=== PATIENT | female | born 1940 | race Caucasian/White ===

== ENCOUNTER 2019-07-06 12:47 | Emergency (ER) | payer MEDICARE, OTHER ==
[~2019-07-06] VITALS: Ht 157.5 cm; Wt 104.5 kg
[~2019-07-06 12:47] MED LIST: ACET65TA; ACTO45TA; AMBI10TA; ASPI81TA83; ATEN25TA; COZA100T; CYMBALTA; DARV100T; LASI40TA; LESC80TA; LEVO125T6; LORAPOW30; STARLIX; TRAM50TA2 OR; VITA50TA12 OR
--- NOTE | 2019-07-06 13:54 | REP ---
CT brain: 07/06/2019. Indication: Head trauma. Comparison: 11/18/2009. Technique: Unenhanced axial CT images of the brain were obtained from skull base to vertex. Findings: There is no acute intracranial hemorrhage, acute cortical infarction, mass effect, hydrocephalus or acute calvarial fracture. Diffuse volume loss is present. Patchy areas of cerebral white matter hypoattenuation are noted most consistent with sequelae of chronic small vessel disease. Impression: No acute intracranial process. Mild volume loss and sequelae of chronic microangiopathic ischemic disease. Electronically Signed by Dave Shabazz DO 07/06/2019 01:46 P
--- NOTE | 2019-07-06 13:58 | REP ---
CT cervical spine: 07/06/2019. Indication: Cervical spine trauma. Comparison: None. Technique: Unenhanced axial CT images of the cervical spine were performed with sagittal and coronal reconstructions provided. Findings: There is no acute fracture, subluxation or dislocation. The spinal canal and neural foramen appear patent without evidence of spinal canal hemorrhage or additional acute spinal canal post traumatic sequelae. The paraspinal soft tissues are unremarkable. Multilevel degenerative sequelae are present most pronounced at C6/C7. Impression: No acute post traumatic osseous injuries of the cervical spine. Electronically Signed by Dave Shabazz DO 07/06/2019 01:49 P
[2019-07-06] MEDS ORDERED: ONDANSETRON 4MG/2ML VIAL (J2405) IV ONE (14:00)
[2019-07-06] MEDS ORDERED: MORPHINE 4 MG/ML 1ML VIAL/SYRINGE (J2270) IV ONE (14:00)
[2019-07-06] MEDS ORDERED: PERCOCET 5MG/325MG TAB PO ONE (15:00)
[2019-07-06] MEDS ORDERED: LIDOCAINE W/EPINEPHRINE 1% 20ML VIAL SC ONE (15:00)
[2019-07-06 15:02] LABS: BASO % 0.6 % (0.0-1.0); EOS # 0.4 10^3/uL (0.0-0.5); EOS % 5.4 % (0.0-3.0); HEMATOCRIT 41.2 % (36.0-47.0); HEMOGLOBIN 13.3 g/dl (12.0-15.5); LYMPH # 1.8 10^3/uL (1.5-5.0); LYMPH % 26.8 % (24.0-44.0); MEAN CORPUSCULAR HEMOGLOBIN 31.4 pg (27.0-33.0); MEAN CORPUSCULAR HGB CONC 32.3 g/dl (32.0-36.5); MEAN CORPUSCULAR VOLUME 97.2 fl (80.0-96.0); MONO # 0.5 10^3/uL (0.0-0.8); MONO % 7.2 % (0.0-5.0); NEUTROPHILS # 3.9 10^3/uL (1.5-8.5); NEUTROPHILS % 59.4 % (36.0-66.0); PLATELET COUNT, AUTOMATED 109 10^3/uL (150-450); RED BLOOD COUNT 4.24 10^6/uL (4.00-5.40); WHITE BLOOD COUNT 6.6 10^3/uL (4.0-10.0)
[2019-07-06 15:12] LABS: INR 1.1; PROTHROMBIN TIME 13.9 SECONDS (11.8-14.0)
[2019-07-06 15:13] LABS: PARTIAL THROMBOPLASTIN TIME 35.9 SECONDS (25.0-38.4)
--- NOTE | 2019-07-06 15:21 | REP ---
HISTORY: Pain after trauma. COMPARISON: None. The lack of intravenous contrast decreases the sensitivity of the exam. Standard trauma protocol requires the use of intravenous contrast. There is no evidence of mediastinal or hilar adenopathy. There are no pleural or pericardial effusions. The imaged osseous structures are within normal limits for the patient's age. Evaluation of the lung watts shows no abnormal nodules, masses or opacities. IMPRESSION: Limited exam showing no evidence of acute disease. Electronically Signed by Michael Gomez DO 07/06/2019 04:57 P
--- NOTE | 2019-07-06 15:22 | REP ---
REASON: Pain after trauma. The lack of intravenous contrast significantly decreases the sensitivity of the exam particularly when the patient has been involved in trauma. Trauma protocol requires intravenous contrast administration to better evaluate the liver and spleen for small lacerations. For discussion of the lung bases seen the CT examination of the chest report made the same day. Grossly, the liver and spleen are within normal limits. No abnormal perisplenic or perihepatic fluid is identified. The pancreas, adrenal glands, and kidneys are within normal limits for the patient's age. The abdominal aorta and paraaortic regions are within normal limits for the patient's age. There is no evidence of free fluid or free air in the abdomen. The bowel loops and their mesenteries are unremarkable. Note is made of perisplenic varices. CT PELVIS: There is no free fluid or free air. There is no mass or adenopathy. The bowel loops and their mesenteries are within normal limits. Bone window technique throughout the exam shows the osseous structures to be within normal limits for the patient's age. IMPRESSION: Exam limitations and findings as described above. There is no evidence of an acute abnormality. Electronically Signed by Michael Gomez DO 07/06/2019 04:57 P
[2019-07-06 15:28] LABS: ALBUMIN 2.8 GM/DL (3.2-5.2); BILIRUBIN,DIRECT 0.3 MG/DL (0.0-0.2); BILIRUBIN,TOTAL 0.9 MG/DL (0.2-1.0); CALCIUM LEVEL 9.2 MG/DL (8.8-10.2); CREATININE FOR GFR 1.19 MG/DL (0.55-1.30); GLOMERULAR FILTRATION RATE 46.7 (>39); POTASSIUM SERUM 4.9 MEQ/L (3.5-5.1); TOTAL PROTEIN 7.3 GM/DL (6.4-8.2)
[2019-07-06 16:15] VITALS: BP 170/74
[2019-07-06] MEDS ORDERED: COLA100C5 PO (16:23)
[2019-07-06] MEDS ORDERED: PERC5TAB12 PO (16:23)
== END 2019-07-06 17:12 | disposition home or self-care (01) ==
LOC: M ED 12:47 → EDBD 12:47 → M ED 17:12
DX: S01.81XA Laceration without foreign body of other part of head, initial encounter (principal); S20.212A Contusion of left front wall of thorax, initial encounter; V48.4XXA Person boarding or alighting a car injured in noncollision transport accident, initial encounter; Y92.89 Other specified places as the place of occurrence of the external cause; I10 Essential (primary) hypertension; E11.9 Type 2 diabetes mellitus without complications; Z79.899 Other long term (current) drug therapy; Z79.890 Hormone replacement therapy
CPT/HCPCS: 12011; 70450; 71250; 72125; 74176; 80048; 80076; 83690; 85025; 85610; 85730; 86850; 86900; 86901; 93041; 94760; 96374; 96375; 99285; J2270; J2405

== ENCOUNTER 2020-12-18 12:41 | Emergency (ER) | payer MEDICARE, OTHER ==
[~2020-12-18] VITALS: Ht 157.5 cm; Wt 105.6 kg
[~2020-12-18 12:41] MED LIST changes: +COLA100C5 PO; +PERC5TAB12 PO
[2020-12-18 15:35] LABS: VENOUS BASE EXCESS -3.2 (-2.0-2.0); VENOUS HCO3 22.5 MEQ/L (23.0-27.0); VENOUS O2 SATURATION 59.5 % (60.0-80.0); VENOUS PARTIAL PRESSURE CO2 42.9 mmHg (38.0-50.0); VENOUS PARTIAL PRESSURE O2 33.9 mmHg (30.0-50.0); VENOUS PH 7.338 UNITS (7.330-7.430); VENOUS TOTAL CO2 23.8 MEQ/L (24.0-28.0)
[2020-12-18 15:38] LABS: BASO % 0.7 % (0.0-1.0); EOS # 0.5 10^3/uL (0.0-0.5); EOS % 8.1 % (0.0-3.0); HEMATOCRIT 38.4 % (36.0-47.0); HEMOGLOBIN 12.3 g/dl (12.0-15.5); LYMPH % 35.3 % (24.0-44.0); MEAN CORPUSCULAR HEMOGLOBIN 31.3 pg (27.0-33.0); MEAN CORPUSCULAR VOLUME 97.7 fl (80.0-96.0); MONO # 0.6 10^3/uL (0.0-0.8); MONO % 11.2 % (2.0-8.0); NEUTROPHILS # 2.5 10^3/uL (1.5-8.5); NEUTROPHILS % 44.3 % (36.0-66.0); RED BLOOD COUNT 3.93 10^6/uL (4.00-5.40); WHITE BLOOD COUNT 5.6 10^3/uL (4.0-10.0)
[2020-12-18] MEDS ORDERED: ROSU20TA5 (15:57)
[2020-12-18] MEDS ORDERED: TRES1INJ (15:57)
[2020-12-18] MEDS ORDERED: NOVOINJ3 (15:57)
[2020-12-18] MEDS ORDERED: HUMI40KI2 (15:57)
[2020-12-18] MEDS ORDERED: SITA50TAB (15:57)
[2020-12-18] MEDS ORDERED: VITA100054 PO (15:57)
[2020-12-18 16:02] LABS: CALCIUM LEVEL 10.1 MG/DL (8.8-10.2); CREATININE FOR GFR 1.66 MG/DL (0.55-1.30); GLOMERULAR FILTRATION RATE 31.6 (>32)
--- NOTE | 2020-12-18 16:15 | REP ---
INDICATION: TIA. COMPARISON: CT head 07/06/2019. TECHNIQUE: Axial CT images with multiplanar reformations. FINDINGS: No acute bleed or acute large vessel territorial infarct. Ventricles, cisterns and sulci are within normal limits. No mass effect or midline shift. No abnormal fluid collections. Paranasal sinuses and mastoid air cells are clear. IMPRESSION: No acute findings. No significant changes from previous. <Electronically signed by Edison Lundy > 12/18/20 [id number]
[2020-12-18 16:21] LABS: PLATELET COUNT, AUTOMATED 85 10^3/uL (150-450)
[2020-12-18 16:41] LABS: HEMOGLOBIN A1c 8.3 %
[2020-12-18] MEDS ORDERED: FREETES12 MC (18:06)
[2020-12-18] MEDS ORDERED: GLUCOSE LANCETS (18:06)
[2020-12-18] MEDS ORDERED: [UNRECOGNIZED DRUG - SUPPLY] XX (18:06)
[2020-12-18 18:44] VITALS: BP 121/91
== END 2020-12-18 18:45 | disposition home or self-care (01) ==
LOC: M ED 12:41
DX: E11.9 Type 2 diabetes mellitus without complications (principal); F41.9 Anxiety disorder, unspecified; I10 Essential (primary) hypertension; E78.5 Hyperlipidemia, unspecified; E66.9 Obesity, unspecified; Z79.899 Other long term (current) drug therapy; Z79.4 Long term (current) use of insulin

== ENCOUNTER 2021-04-15 13:16 | Inpatient (IN) | payer MEDICARE, OTHER ==
[2021-04-15] VITALS (8 sets, daily range): BP systolic 95–161; BP diastolic 59–98
[~2021-04-15] VITALS: Ht 160 cm; Wt 116.1 kg
[~2021-04-15 13:16] MED LIST changes: +FREETES12 MC; +GLUCOSE LANCETS; +HUMI40KI2 PO; +NOVOINJ3 SQ; +ROSU20TA5; +SITA50TAB PO; +TRES1INJ SQ; +VITA100054 PO; +[UNRECOGNIZED DRUG - SUPPLY] XX
[2021-04-15] MEDS ORDERED: NS 3,150 ML in IV 1 EA IV ONE (13:50)
[2021-04-15 14:18] LABS: HEMATOCRIT 38.4 % (36.0-47.0); HEMOGLOBIN 12.3 g/dl (12.0-15.5); MEAN CORPUSCULAR HEMOGLOBIN 30.3 pg (27.0-33.0); MEAN CORPUSCULAR VOLUME 94.6 fl (80.0-96.0); RED BLOOD COUNT 4.06 10^6/uL (4.00-5.40); WHITE BLOOD COUNT 16.3 10^3/uL (4.0-10.0)
[2021-04-15 14:19] LABS: VENOUS BASE EXCESS -5.5 (-2.0-2.0); VENOUS HCO3 20.1 MEQ/L (23.0-27.0); VENOUS O2 SATURATION 88.1 % (60.0-80.0); VENOUS PARTIAL PRESSURE CO2 39.8 mmHg (38.0-50.0); VENOUS PARTIAL PRESSURE O2 59.9 mmHg (30.0-50.0); VENOUS PH 7.321 UNITS (7.330-7.430); VENOUS STANDARD HCO3 19.7 MEQ/L; VENOUS TOTAL CO2 21.3 MEQ/L (24.0-28.0)
[2021-04-15 14:23] LABS: PLATELET COUNT, AUTOMATED 72 10^3/uL (150-450)
--- NOTE | 2021-04-15 14:27 | REP ---
INDICATION: DKA. COMPARISON: 02/08/2011. TECHNIQUE: Portable AP view of the chest with the patient semi upright. FINDINGS: The patient is rotated and the cardiac silhouette obscures almost the entire left hemithorax. There is interstitial coarsening throughout the visualized right lung that appears slightly increased from the comparison study. There are no focal infiltrates. No pleural effusion. The madelin and mediastinum are obscured by patient positioning. IMPRESSION: Interstitial coarsening, somewhat increased from the comparison study. <Electronically signed by Chase Salazar > 04/15/21 [id number]
--- NOTE | 2021-04-15 14:28 | REP ---
INDICATION: fall; left shoulder pain COMPARISON: None. TECHNIQUE: Three views left shoulder. FINDINGS: There is no evidence of acute fracture, dislocation, or intrinsic bone disease.Humeral head is high riding with significant decreased subacromial space compatible with a rotator cuff tear. There are mild degenerative changes at the acromioclavicular joint. IMPRESSION: No fracture or dislocation. High riding humeral head compatible with rotator cuff tear. <Electronically signed by Chase Garcia > 04/15/21 [id number]
[2021-04-15] MEDS ORDERED: DEXTROSE 50% 50 ML SYRINGE IV STA ×2 (15:00→19:08)
--- NOTE | 2021-04-15 15:11 | REP ---
INDICATION: DKA. COMPARISON: None. TECHNIQUE: CT brain performed in the axial plane. Coronal reconstruction images are performed. FINDINGS: There is mild atrophy. There is no midline shift or mass effect. Garcia-white differentiation is well maintained. There is no acute intracranial hemorrhage or extra-axial fluid collection. Bone window examination is unremarkable. The visualized mastoid air cells and paranasal sinuses are clear. There are vascular calcifications in the carotid siphons bilaterally. IMPRESSION: Mild stable chronic findings. No acute intracranial abnormality. <Electronically signed by Chase Garcia > 04/15/21 [id number]
--- NOTE | 2021-04-15 15:16 | REP ---
INDICATION: DKA. COMPARISON: 07/06/2019. TECHNIQUE: CT cervical spine performed in the axial plane, with sagittal and coronal reconstruction images performed. FINDINGS: There is no acute compression fracture or malalignment. There is no prevertebral soft tissue swelling. There is mild to moderate diffuse spurring. There is mild disc space narrowing at C4-5 and C5-6 with a more moderate degree of disc space narrowing at C6-7. There is diffuse sclerosis and spurring at the posterior facet joints. There is curvature toward the left. There is normal cervical lordosis. There is no abnormal density in the spinal canal. IMPRESSION: No evidence of acute fracture or dislocation.Degenerative changes as above. <Electronically signed by Chase Garcia > 04/15/21 [id number]
[2021-04-15] MEDS ORDERED: cefTRIAXone SOD 2 GM in D5W MINI-BAG PLUS 50 ML IV ONE (15:45)
[2021-04-15 15:48] LABS: ATYPICAL LYMPH 1 % (0-5); EOSINOPHILS 1 % (0-3); LYMPHOCYTES 4 % (16-44); MONOCYTES 4 % (0-5); NEUTROPHILS 89 % (28-66)
[2021-04-15 15:49] LABS: PLATELET ESTIMATE DECREASED (NORMAL); TOXIC VACUOLATION 1+
[2021-04-15 16:07] LABS: ACETONE/KETONE 2.85 MG/DL (<2.81); ALBUMIN 2.2 GM/DL (3.2-5.2); BILIRUBIN,DIRECT 1.7 MG/DL (0.0-0.2); BILIRUBIN,TOTAL 2.9 MG/DL (0.2-1.0); CK-MB VALUE MASS 70.6 NG/ML (<3.6); CREATININE FOR GFR 1.71 MG/DL (0.55-1.30); GLOMERULAR FILTRATION RATE 30.6 (>32); MAGNESIUM LEVEL 2.8 MG/DL (1.8-2.4); MB/CK RELATIVE INDEX 3.12 (< OR =4); POTASSIUM SERUM 4.1 MEQ/L (3.5-5.1); TROPONIN I 3.8 NG/ML (< 0.10)
[2021-04-15 16:11] LABS: RSV AMPLIFICATION NEGATIVE (NEGATIVE)
[2021-04-15 16:32] LABS: HEMOGLOBIN A1c 7.4 %
[2021-04-15 17:50] LABS: CK-MB VALUE MASS 64.5 NG/ML (<3.6); MB/CK RELATIVE INDEX 3.43 (< OR =4); TROPONIN I 3.62 NG/ML (< 0.10)
[2021-04-15] MEDS ORDERED: NS 1,000 ML IV SCH (18:10)
--- NOTE | 2021-04-15 20:15 | HPEPDOC ---
[facility] Medical History & Physical Date of Admission Apr 15, 2021 Date of Service: Apr 15, 2021 History and Physical CHIEF COMPLAINT: Found down on ground by neighbors HISTORY OF PRESENT ILLNESS: History was obtained from emergency department staff patient does remember how she ended up in the hospital. I'm told that she was found on the floor by her neighbors suspected to be on the ground for over 24 hours EMS was called and she was brought to the ED. She was hypothermic 91 Fahrenheit and hypoglycemic blood sugar was 31. She was hypotensive. She had lactic acidosis of 4.1 her troponin was elevated to 3.[address] 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 She had significant leukocytosis 16.3. Her urinalysis was positive she suspected to have sepsis secondary to this urinary tract infection at this point. Patient is acutely ill she did start to get better with IV fluids her mentation started to improve she was awake enough to answer some basic questions she was oriented to herself she knew she was in the hospital she could identify me as a physician in [place] she had a brother she tells me she has no children she tells me she is not in any pain. She tells me she has no idea what happened out how she ended up here. She is to acutely sick to go over her entire past medical history but she was able to me that she is diabetic. Patient was lucid enough and responded appropriately enough that I was comfortably able to obtain consent for CODE STATUS patient was very clear and explicitly stated she does not wish to be resuscitated or intubated. MOLST form was completed presenting patient's wishes. She understands she is very sick and might and she wants to be left to peacefully if we can treat her with medication alone. PAST MEDICAL/SURGICAL HISTORY: Difficult to obtain accurately given patient's severe illness. She admitted to having diabetes The rest of her medical history will be based on obtaining records from her primary care physician as well as based on her med rec SOCIAL HISTORY: Difficult to obtain accurately given patient's severe illness. She states she doesn't drink. FAMILY HISTORY: Not relevant given her age and severity of illness. ALLERGIES: Please see below. REVIEW OF SYSTEMS: Difficult to obtain accurately given patient's severe illness. He denied having chest pain also denied having shortness of breath denied being in pain. HOME MEDICATIONS: Please see below. PHYSICAL EXAMINATION: Constitutional: Arousable and appears very sick, elderly, and weak but she is able to answer basic questions she the hospital, she knows her own name and date of and she knows she has a brother. ENT: Sclera are clear. Mucosa is dry Respiratory: Lungs diminished breath sounds bilaterally. Cardiovascular: Irregular rate and rhythm Gastrointestinal: Abdomen is soft, obese, non distended, non tender, BS present. Musculoskeletal: No lower extremity edema. Neurologic: Unable to assess Mental Status: A&O x3, very slow to respond to questions Skin: No visible rashes LABORATORY DATA: See below. IMAGING: See chart MICROBIOLOGY: Please see below. ASSESSMENT/PLAN # Septic shock: Admit to ICU. presumed to be due to underlying UTI. BP failed to improve with IVFs alone. I asked to ED to place a central line and start Levofed. Continue IVFs. Leukocytosis initially 16.3 Given 1 dose Recephin in ED, I will broaden this to IV Zosyn and Vanc and narrow down once we have UCx/BCx results back. NPO tonight. Indwelling collier. monitor Ins/outs. # UTI: as above. IVFs. IV Vancomycin and Zosyn. UA+. Fu UCs, BCx. # Hypothermia: due to severe illness and downtime. Bare hugger. Improved from 91F initially to 96F. # FLAKITA: Cr 1.7. Acute illness, septic shock. IVFs NS. Trend BMP. Avoid nephrotoxins. Unknown if she has underlying CKD at this time. # Rhabdomyolysis: due to down time on the floor. IVFs. CPK initially 2263. Trend CPK. # Lactic acidosis: 4.1 initially. Due to severe illness with septic shock. Repeat per sepsis protocol. Treatment as above with IVFs/IV Abx. # Tropenemia: Case discussed with Dr White cardiology, doesn't think cardiac. Ok to admit. Thinks demand from her severe illness. Trop 3.8 went down to 3.62. # Presumed to be new A-fib: PCP records need to be obtained tomorrow if possible. Will not start her on anti-coagulation tonight given her severe illness and significant thrombocytopenia. Rate improved from 107 to 91 after fluids. Cardiac monitoring. # Hypoglycemia: initially 31. Receiving D50 amps PRN. # DM: ISS q6h while NPO. Frequent Accu-Cheks. Hypoglycemic precautions. # Thrombocytopenia: monitor. Avoid anti-coagulation for tonight. # Elevated bilirubin: repeat CMP tomorrow. Liver US. # HTN: hypotensive on pressors. Hold all home anti-hypertensives. # Class 3 obesity: BMI 41. Complicates care. # Hypothyroidism: check TSH. IV Synthroid 1/2 home PO dose for now. # None essential home medications on hold for now. Can resume selectively when she's doing better. # DVT Prophyalxis SCDs/TEDs only for tonight Severely ill with guarded prognosis. Code Status DNR/DNI Contact Dr Pelaez office tomorrow to obtain her medical records/history. Critical care time 50 minutes. A [facility] Hospitalist Vital Signs Vital Signs Date Time Temp Pulse Resp B/P (MAP) Pulse Ox O2 Delivery O2 Flow Rate FiO2 04/15/21 18:45 97 101/51 (68) 98 Room Air 04/15/21 18:15 20 04/15/21 17:35 95.0 Laboratory Data Labs 24H Laboratory Tests 2 04/15/21 13:27: Bedside Glucose (Misc Panel) 135H 04/15/21 13:48: Bedside Glucose (Misc Panel) 113H 04/15/21 14:02: Blood Gas Bicarbonate Standard 19.7, Venous Blood pH 7.321L, Venous Blood Partial Pressure CO2 39.8, Venous Blood Partial Pressure O2 59.9H, Venous Blood Total Carbon Dioxide 21.3L, Venous Blood HCO3 20.1L, Venous Blood Oxygen Saturation 88.1H, Venous Blood Base Excess -5.5L 04/15/21 14:03: Neutrophils (%) (Auto) , Nucleated Red Blood Cells % (auto) 0.0, Neutrophils 89H, Band Neutrophils 1, Lymphocytes (Manual) 4L, Monocytes (Manual) 4, Eosinophils (Manual) 1, Atypical Lymphocytes 1, Toxic Vacuolation 1+, Platelet Estimate DECREASED, Immature Platelet Fraction 5.6, Anion Gap 11, Glomerular Filtration Rate 30.6L, Estimated Mean Plasma Glucose 166H, Hemoglobin A1c 7.4, Osmolality 302H, Lactic Acid Level 4.1*H, Calcium Level 8.0L, Magnesium Level 2.8H, Total Bilirubin 2.9H, Direct Bilirubin 1.7H, Aspartate Amino Transf (AST/SGOT) 159H, Alanine Aminotransferase (ALT/SGPT) 44, Alkaline Phosphatase 84, Total Creatine Kinase 2263H, Creatine Kinase MB 70.6H, Creatine Kinase MB Relative Index 3.12, Troponin I 3.80*H, Total Protein 7.0, Albumin 2.2L, Albumin/Globulin Ratio 0.5L, Lipase 49L, B-Hydroxybutyrate 2.85H 04/15/21 14:05: Urine Color DAVID, Urine Appearance TURBIDH, Urine pH 5.0, Urine Specific [place]k 1.015, Urine Protein 2+H, Urine Glucose (UA) NEGATIVE, Urine Ketones NEGATIVE, Urine Blood 3+H, Urine Nitrite NEGATIVE, Urine Bilirubin NEGATIVE, Urine Urobilinogen 4.0H, Urine Leukocyte Esterase 3+H, Urine WBC (Auto) TNTCH, Urine RBC (Auto) 9H, Urine Hyaline Casts (Auto) 0, Urine Bacteria (Auto) 2+H, Urine Squamous Epithelial Cells 4, Urine Granular Casts (Auto) 4, Urine Mucus (Auto) SMALL, Urine Sperm (Auto) 04/15/21 14:22: Coronavirus (COVID-19)(PCR) NEGATIVE, Influenza Type A (RT-PCR) NEGATIVE, Influenza Type B (RT-PCR) NEGATIVE, Respiratory Syncytial Virus (PCR) NEGATIVE 04/15/21 14:47: Bedside Glucose (Misc Panel) 78L 04/15/21 15:46: Bedside Glucose (Misc Panel) 91 04/15/21 17:00: Total Creatine Kinase 1879H, Creatine Kinase MB 64.5H, Creatine Kinase MB Relative Index 3.43, Troponin I 3.62*H 04/15/21 17:03: Bedside Glucose (Misc Panel) 89 04/15/21 18:10: Bedside Glucose (Misc Panel) 73L 04/15/21 19:06: Bedside Glucose (Misc Panel) 61L 04/15/21 19:42: Bedside Glucose (Misc Panel) 97 04/15/21 19:52: CBC/BMP Laboratory Tests 04/15/21 14:03 Microbiology Microbiology 04/15/21 Urine Culture, Received Pending 04/15/21 Blood Culture, Received Pending 04/15/21 Blood Culture, Received Pending Home Medications Scheduled Adalimumab (Humira Pen) 40 Mg/0.8 Ml Pen.[email or web address].kit, 40 MG PO Q2WK Atenolol (Atenolol) 50 Mg Tablet, 25 MG PO DAILY Cholecalciferol (Vitamin D3) (Vitamin D3) 25 Mcg Capsule, 25 MCG PO DAILY Cyanocobalamin (Vitamin B-12) (Vitamin B-12) 500 Mcg Tablet, 500 MCG PO DAILY Duloxetine Hcl (Duloxetine HCl) 30 Mg Capsule.dr, 90 MG PO QHS Insulin Aspart (Novolog Flexpen) 100 Unit/1 Ml Insuln.pen, 12 UNITS SQ BID Insulin Degludec (Tresiba Flextouch U-200) 200 Unit/1 Ml Insuln.pen, 80 UNITS SQ DAILY Irbesartan (Irbesartan) 150 Mg Tablet, 150 MG PO DAILY Levothyroxine Sodium (Levoxyl) 125 Mcg Tablet, 125 MCG PO DAILY Rosuvastatin Calcium (Rosuvastatin Calcium) 20 Mg Tablet, 20 MG PO DAILY Sitagliptin (Januvia) 50 Mg Tablet, 50 MG PO DAILY Miscellaneous Medications [Patient Comment] UNABLE TO VERIFY MEDICATIONS WITH PATIENT, MED LIST OBTAINED FROM [facility] [place] Allergies Coded Allergies: No Known Drug Allergies (Verified Allergy, Unknown, 12/18/20) TRICE OWEN MD Apr 15, 2021 20:14
[2021-04-15] MEDS ORDERED: GLUCAGON INJ 1MG VIAL SC PRN (20:30)
[2021-04-15] MEDS ORDERED: PIPERACILLIN/TAZOBACTAM SOD 4.5 GM in D5W MINI-BAG PLUS 50 ML IV SCH (20:30)
[2021-04-15] MEDS ORDERED: DEXTROSE 50% 50 ML SYRINGE IV PRN (20:30)
[2021-04-15] MEDS ORDERED: NOREPINEPHRINE BITARTRATE 8 MG in D5W 500 ML IV SCH (20:30)
[2021-04-15] MEDS ORDERED: GLUCOSE 4GM CHEW TABLET PO PRN (20:30)
[2021-04-15] MEDS ORDERED: IRBE150T7 PO (20:37)
[2021-04-15] MEDS ORDERED: ATEN50TA2 PO (20:37)
[2021-04-15] MEDS ORDERED: LEVO125T41 PO (20:37)
[2021-04-15] MEDS ORDERED: DULO1CAP5 PO (20:37)
[2021-04-15] MEDS ORDERED: ROSU20TA5 PO (20:37)
[2021-04-15] MEDS ORDERED: VITA500T40 PO (20:37)
[2021-04-15] MEDS ORDERED: PATIENT COMMENT (20:38)
[2021-04-15] MEDS ORDERED: HOME MED LIST COMPLETE! XX SCH (20:40)
--- NOTE | 2021-04-15 22:01 | ECGEPIP ---
[facility] - ED Test Date: 2021-04-15 Pat Name: SHIKHA CARR Department: Room: - Gender: Female [employer]oter: MONICA : 1940 Requested By: JOSUE MCBRIDE Order Number: [id number] Reading MD: Suman Burroughs Measurements Intervals [place] Rate: 107 P: NV: QRS: -50 QRSD: 108 T: -21 QT: 408 QTc: 544 Interpretive Statements Atrial fibrillation with rapid ventricular response Left axis deviation Low voltage QRS Incomplete right bundle branch block Inferior infarct , age undetermined ST & T wave abnormality, consider anterior ischemia NO PRIORS FOR COMPARISON Electronically Signed on 04-15-2021 22:01:14 EDT by Suman Burroughs
--- NOTE | 2021-04-15 22:19 | REPVR ---
PROCEDURE INFORMATION: Exam: XR Chest Exam date and time: 04/15/2021 9:34 PM Age: 80 years old Clinical indication: Other: Pneumo TECHNIQUE: Imaging protocol: XR of the chest. Views: 1 view. COMPARISON: CR PORTABLE CHEST X-RAY 04/15/2021 2:01 PM FINDINGS: Lungs: Ovoid density projects over the mid heart region may suggest presence of a granuloma. Additional granulomas in the left mid lung zone. Increased interstitial lung markings demonstrated bilaterally. No acute infiltrates. Prominent contour of the right pulmonary hilum may be related to a prominent vascular structure although a perihilar infiltrate or mass not excluded. Further evaluation with nonemergent thoracic CT may be of additional benefit. Pleural spaces: Unremarkable. No pleural effusion. No pneumothorax. Heart/Mediastinum: Cardiomegaly. Bones/joints: Osteoporosis. The spine demonstrates moderate degenerative changes. IMPRESSION: 1. Cardiomegaly. 2. Increased interstitial lung markings demonstrated bilaterally. No acute infiltrates. 3. Prominent contour of the right pulmonary hilum may be related to a prominent vascular structure although a perihilar infiltrate or mass not excluded. Further evaluation with nonemergent thoracic CT may be of additional benefit. Electronically signed by: Darien Martínez On 04/15/2021 22:18:57 PM
[2021-04-15] MEDS: PIPERACILLIN/TAZOBACTAM SOD 3.375 GM in D5W MINI-BAG PLUS 50 ML IV SCH (22:49)
[2021-04-15] MEDS: DOCUSATE SODIUM 100MG CAPSULE PO SCH (22:50)
[2021-04-15] MEDS ORDERED: DIGOXIN INJ 0.5 MG/2 ML AMP (J1160) IV ONE (23:45)
[2021-04-15] MEDS: NS 1,000 ML IV SCH (23:53)
[2021-04-16] VITALS (30 sets, daily range): BP systolic 87–127; BP diastolic 43–75
[2021-04-16] MEDS ORDERED: VANCOMYCIN HCL 1,000 MG, VIAL MATE ADAPTER 1 EACH in NS 250 ML IV ONE ×3
[2021-04-16] MEDS: VANCOMYCIN HCL 1,000 MG, VIAL MATE ADAPTER 1 EACH in NS 250 ML IV SCH ×2 (00:09→23:25)
[2021-04-16] MEDS ORDERED: DEXTROSE 50% 50 ML SYRINGE IV STA (01:07)
[2021-04-16] MEDS: PIPERACILLIN/TAZOBACTAM SOD 3.375 GM in D5W MINI-BAG PLUS 50 ML IV SCH ×2 (04:18→08:52)
[2021-04-16] MEDS: NS 1,000 ML IV SCH (04:49)
[2021-04-16 04:54] LABS: HEMATOCRIT 33.4 % (36.0-47.0); HEMOGLOBIN 10.7 g/dl (12.0-15.5); MEAN CORPUSCULAR HEMOGLOBIN 30.1 pg (27.0-33.0); MEAN CORPUSCULAR VOLUME 93.8 fl (80.0-96.0); RED BLOOD COUNT 3.56 10^6/uL (4.00-5.40); WHITE BLOOD COUNT 16.2 10^3/uL (4.0-10.0)
[2021-04-16 04:55] LABS: PLATELET COUNT, AUTOMATED 64 10^3/uL (150-450)
[2021-04-16 05:51] LABS: ALBUMIN 1.9 GM/DL (3.2-5.2); BILIRUBIN,TOTAL 2.3 MG/DL (0.2-1.0); CALCIUM LEVEL 6.7 MG/DL (8.8-10.2); GLOMERULAR FILTRATION RATE 25.5 (>32); MAGNESIUM LEVEL 2.2 MG/DL (1.8-2.4); POTASSIUM SERUM 4.3 MEQ/L (3.5-5.1); THYROID STIMULATING HORMONE 17.3 uIU/ML (0.358-3.740); TOTAL PROTEIN 6.1 GM/DL (6.4-8.2); TROPONIN I 5.88 NG/ML (< 0.10)
[2021-04-16] MEDS: HumaLOG INSULIN (NovoLOG) PER UNIT SC SCH ×4 (05:52→18:00)
[2021-04-16 05:57] LABS: ABG BASE EXCESS -6.6 (-2.0-2.0); ABG HCO3 15.6 MEQ/L (22.0-26.0); ABG O2 SATURATION 97.7 % (95.0-99.0); ABG PARTIAL PRESSURE CO2 22.6 mmHg (35.0-45.0); ABG PARTIAL PRESSURE O2 103.3 mmHg (75.0-100.0); ABG TOTAL CO2 16.3 MEQ/L (23.0-31.0); ABG pH (ARTERIAL) 7.457 UNITS (7.350-7.450)
[2021-04-16] MEDS: LEVOTHYROXINE 100MCG (0.1MG) VIAL IV SCH (06:24)
--- NOTE | 2021-04-16 08:31 | REP ---
INDICATION: Elevated bilirubin. COMPARISON: Abdomen/pelvis CT dated 07/06/2019. TECHNIQUE: Multiple ultrasonographic images of the abdomen. FINDINGS: The examination is technically difficult because of patient body habitus. The gallbladder cannot be identified. This may be from prior cholecystectomy or obscuration from patient body habitus. There is no intrahepatic biliary duct dilatation. The common biliary duct measures 6.3 mm in diameter. This is a dilated in a patient without cholecystectomy but can be normal in a post cholecystectomy patient. Pancreas is obscured by bowel gas. The spleen is slightly enlarged measuring 11.9 x 11.3 x 4.6 cm for a splenic index is 619. Normal splenic index is less than 480. The right kidney is normal size measuring 11.5 x 5.4 x 5.1 cm. There is no right renal calculus, hydronephrosis, mass or cyst. The left kidney could not be visualized. The aorta could not be visualized. No abdominal free fluid is identified. IMPRESSION: Extremely limited examination because of patient body habitus. The gallbladder, pancreas, aorta and left kidney could not be visualized. The common biliary duct is dilated in a patient without cholecystectomy but normal size in a post cholecystectomy patient. The spleen is mildly enlarged. No free fluid is identified. <Electronically signed by Chase Salazar > 04/16/21 [id number]
[2021-04-16] MEDS: DOCUSATE SODIUM 100MG CAPSULE PO SCH ×2 (08:38→21:00)
[2021-04-16] MEDS ORDERED: D5W/LR 1,000 ML IV SCH (08:40)
[2021-04-16 09:29] LABS: FREE T4 0.91 NG/DL (0.76-1.46)
--- NOTE | 2021-04-16 09:32 | IPNPDOC ---
Text Note Date of Service The patient was seen on 04/16/21. NOTE Subjective: Patient was admitted on 04/15/21 for possible septic shock. When patient arrived yesterday she was hypoglycemia, hypotensive, and hypothermic (91 degrees Fahrenheit). UA showed that patient had a UTI at admission. When patient was seen today she was Not alert or oriented and was unable to respond to or answer questions. According to the patient's nurse patient's mental status deteriorated overnight and now she is only responsive to painful stimuli. Physical exam: General: Comfortable laying in bed, mild respiratory distress with short shallow breaths Psych: Patient is not alert or oriented - responds to pain. HEENT: No visible thyromegaly or lymph node enlargement, Patient has rigidity of her neck (no forward flexion) Chest: Patient has a clear third heart sound best heard at the tricuspid valve (5th intercostal space adjacent to the sternum on the left) no other murmurs or heart sounds were auscultated. Lungs: Lung sounds are distant bilaterally. No adventitious lung sounds are appreciated. Neurology: Patient does not follow commands due to altered mental status Extremities: Patient has normal pulses pedal and posterior tibial in both extremities. Trace lower extremity edema is noted Imaging: Chest X-ray 04/16/21 As reported: IMPRESSION: Diffuse bilateral interstitial coarsening that has increased. No focal infiltrate or pleural effusion. Questionable new lung nodule projected above the left hemidiaphragm, over the heart, to the left of the spine as discussed above. Abdominal CT - 04/15/21 - As reported: IMPRESSION: Extremely limited examination because of patient body habitus. The gallbladder, pancreas, aorta and left kidney could not be visualized. The common biliary duct is dilated in a patient without cholecystectomy but normal size in a post cholecystectomy patient. The spleen is mildly enlarged. No free fluid is identified. Chest X-ray 04/15/21 As reported: IMPRESSION: 1. Cardiomegaly. 2. Increased interstitial lung markings demonstrated bilaterally. No acute infiltrates. 3. Prominent contour of the right pulmonary hilum may be related to a prominent vascular structure although a perihilar infiltrate or mass not excluded. Further evaluation with nonemergent thoracic CT may be of additional benefit. Shoulder X-ray 04/15/21 As reported: IMPRESSION: No fracture or dislocation. High riding humeral head compatible with rotator cuff tear. Head CT 04/15/21 - As reported: IMPRESSION: Mild stable chronic findings. No acute intracranial abnormality. Chest X-ray 04/15/21 - As reported: IMPRESSION: Interstitial coarsening, somewhat increased from the comparison study. Cervical C-spine 04/15/21 As reported: IMPRESSION: No evidence of acute fracture or dislocation. Degenerative changes as above. Assessment: 80 year old female with past medical history that includes hypothyroidism, Diabetes, hypertension, and rheumatoid arthritis. Patient was found on the floor of her bathroom and on evaluation in the emergency room was found to be hypotensive, hypoglycemia, and hypothermic. Patient was found to have a urinalysis suggestive of UTI and positive blood cultures for gram- positive cocci in clusters, currently being treated for bacteremic septic shock possibly secondary to UTI versus meningitis. Plan: Septic shock -bacteremic, source may be urinary versus RN BABY - Patient's hypotension is being controlled with fluids. Patient has received over 5L of fluids since admission. - Lactic acidosis: 4.1 initially, trended down to 2.6 -General surgery consulted for placement of central line. Dr. Bergeron felt central line placement was not urgent as the patient has been fluid responsive. Considering her low urine output, we are concerned that she will be fluid overloaded at some point and require discontinuation of IV fluids. If she becomes hypotensive at that point she will emergently need central line plac ement for administration of pressors. - Blood cultures show Gram positive cocci in clusters - Patient was initially being treated on Zosyn and vancomycin. Changing antibiotics to Vancomycin, Ceftriaxone, and ampicillin (day #1) to cover for possible meningitis due to the patient's encephalopathy and stiff neck. FLAKITA with oliguria: - Patient creatinine has increased since admission from 1.71 -> 2.00, BUN was 49 on admission and 48 today. - ATN - could have been caused by hypotension, Rhabdomyolysis, or infection. - Since admission the patient has only made 55ml of urine overnight despite re ceiving over 5L of fluids since admission - We will continue to monitor Creatinine and BUN. - Nephrology consulted, appreciate recommendations Rhabdomyolysis: - Elevated CK was found on admission and it has trended down- (2263 -> 1419) - We will continue to monitor labs and continue with IV fluid resuscitation Possible Meningitis: - Patient has bacteremia, nuchal rigidity, and Altered mental status on physical examination. - Antibiotic coverage as above A. fib with RVR: New presumably new onset, developed overnight after admission Patient is status post IV digoxin, currently rate controlled We will avoid anticoagulation at this point given her thrombocytopenia Elevated troponin (3.62 on admission -> 5.88 this morning), potentially related to demand ischemia, rule out ACS - EKG was ordered at admission and today in the morning - No new ischemic changes were seen on EKG. - Echocardiogram was ordered and results are pending, called and asked Dr. White to read this stat. Elevated liver enzymes- most likely from prolonged hypotension - Patient has elevated AST and bilirubin. We will continue to monitor labs daily Tachypnea - Most likely caused by compensatory response to metabolic acidosis from lactic acidosis - CXR was negative for any lung pathology, although does show some early signs of fluid congestion likely from IV fluid administration. Hypoglycemia -Monitor FSBS every 6 hours Added D5 to IV fluids Hypoglycemic protocol Hypothyroidism - Patient had elevated TSH on admission, likely sick euthyroid syndrome -T4 level normal, can consider follow-up TSH in the outpatient setting if patient recovers DVT Prophylaxis: - Patient is thrombocytopenic (62K this morning) , holding anticoagulants for right now. - teds and SCDs CODE STATUS: DNR/DNI Patient initially indicated on admission that she wants to be DNR/DNI when she was felt to be in a lucid state to make her own decisions. When talking to the patient's stated health proxy this morning as the patient was nonresponsive, this CODE STATUS has been confirmed. Disposition: Prognosis is currently guarded as the patient is critically ill. We will continue to discuss the care plan moving forward with the family. GME ATTESTATION My faculty preceptor for this patient encounter was physically present during the encounter and was fully available. All aspects of the patient interview, examination, medical decision making process, and medical care plan development were reviewed and approved by the faculty preceptor. The faculty preceptor is aware and concurs with the plan as stated in the body of this note and will attest to such by his/her cosignature. ATTENDING NOTE I personally examined Ms. Mcneil together with the housestaff team and we d iscussed her findings and management per organ system as accurately noted above. I agree with the above documentation. Briefly, Ms. Mcneil is critically ill with septic shock that was eventually responsive to aggressive fluids, anuric multifactorial renal failure 2/2 prolonged hypotension/prerenal hypoperfusion, rhabdo, sepsis and possible obstructive component with mild hydro, as well as metabolic encephalopathy w/ c/f meningitis. We switched her abx to vanc/ceftriaxone/amp given potential meningitis and low likelihood of pseudomonas given low contact with healthcare settings prior. We have consulted nephrology, updated family about her guarded prognosis and continue fluids, antibiotics and appropriate electrolyte repletions as noted above. VS,Fishbone, I+O VS, Fishbone, I+O Laboratory Tests 04/15/21 14:03 04/16/21 04:44 Vital Signs Date Time Temp Pulse Resp B/P (MAP) Pulse Ox O2 Delivery O2 Flow Rate FiO2 04/16/21 05:30 84 108/49 (68) 99 Room Air 04/16/21 04:00 99.5 32 I&O- Last 24 Hours up to 6 AM 04/16/21 05:59 Intake Total 5150 ml Output Total 55 ml Balance 5095 ml CHANDLER RUBIO OMS-3 Apr 16, 2021 09:32 CUAUHTEMOC WILLIAM D.O. Apr 16, 2021 19:05 CROW MAHONEY MD Apr 17, 2021 08:03
[2021-04-16 09:39] LABS: ABG BASE EXCESS -6.1 (-2.0-2.0); ABG O2 SATURATION 95.5 % (95.0-99.0); ABG PARTIAL PRESSURE CO2 22.7 mmHg (35.0-45.0); ABG PARTIAL PRESSURE O2 75.9 mmHg (75.0-100.0); ABG STANDARD HCO3 19.4 MEQ/L (22.0-26.0); ABG TOTAL CO2 16.7 MEQ/L (23.0-31.0); ABG pH (ARTERIAL) 7.467 UNITS (7.350-7.450)
--- NOTE | 2021-04-16 09:44 | CCN ---
CRITICAL CARE NOTE DATE: 04/15/2021 START TIME: 2044 STOP TIME: 2129 SUBJECTIVE: I attended April Mcneil here in the Intensive Care Unit. Patient has been examined and chart reviewed. I spoke at length with Dr. Platt. In essence, this is an elderly female found down at home probably for at least 24 hours. She was found on the floor by her neighbors. She was initially quite hypothermic and hypoglycemic. She was markedly hypotensive with a lactic acid of 4, troponin of 3.8. The case was discussed with higher level of care and they felt she was not a candidate for intervention from a cardiac standpoint. She was initially given 3 liters of fluid but pressures remained soft. Central lines were attempted by the ER unsuccessful. On arrival here, I attempted a subclavian line and again was able to get a flash of venous blood but could not get the wire to thread. She was given additional crystalloid and her blood pressure now improved to 144 systolic. Heart rate remains in the 140s which appears to be atrial fibrillation. She is of own volition a DNR/DNI. Currently, she is awake, alert and interactive although globally weak. Most recent laboratories shows a white blood cell count of 16.3, hemoglobin 12.3, platelet count ___, 89% segs, 1% bands, sodium 139, K 4.1, chloride 107, CO2 21, BUN 49, creatinine 1.71, glucose 101. Repeat lactic acid down to 2.9. Troponin initially 3.8, now 3.62. Blood gas done, venous, showed a pH of 7.32, pCO2 of 39.8. Chest x-ray shows no infiltrates. Urine is turbid, 3+ blood, too numerous to count white blood cell count, 3+ leukocyte esterase with 2+ bacteria. She has received Rocephin, Vancomycin and now Zosyn. Levophed has been ordered but it has not been started. She is on Synthroid as well. OBJECTIVE: GENERAL: She is sedate, easily arousable and answers questions. She is very ill-appearing. HEENT: Pupils react, sclera clear. Trachea is in the midline. VITAL SIGNS: As outlined above. Temperature here in the ICU is 96.8. CHEST: Clear to auscultation and percussion anteriorly. There are some fine dependent crackles. CARDIAC: Distant, irregularly irregular. Peripheral pulses are diminished but palpable. Trace edema. She has multiple bruises consistent with her being found at home. ABDOMEN: Obese, soft with active bowel sounds. No organomegaly or masses. EXTREMITIES: No cyanosis or clubbing. NEUROLOGIC: She is awake and alert, does answer questions and moves all extremities. Other laboratories shows CPK initially at 2263, now down to 1879. The most pressing problems requiring my presence at the bedside: 1. Lactic acidosis. 2. Renal failure. 3. Hypotension, probably hypovolemia. 4. Markedly elevated troponin. 5. Atrial fibrillation. 6. Hypothyroidism. 7. DNR/DNI status. At this point, I am in agreement with the current antimicrobials as well as her volume resuscitation. We were unable to get central access. For now, she has responded nicely to volume in the crystalloids, hopefully that will continue. Cardiology is involved in her care as well. At this point, he prognosis is guarded but her response to this point is at least somewhat reassuring. Will proceed as outlined above. I left the bedside at 2130 hours; 45 minutes of critical care time was delivered at the bedside not including procedures.
[2021-04-16] MEDS ORDERED: AMPICILLIN SOD 1 GM in D5W 50 ML IV SCH (09:55)
--- NOTE | 2021-04-16 10:30 | REP ---
INDICATION: resp distress. COMPARISON: Portable chest dated 04/15/2021. TECHNIQUE: Portable AP chest with the patient upright. FINDINGS: There is diffuse bilateral interstitial coarsening that appears to have increased from the comparison study. There is no focal infiltrate. No pleural effusions are identified. Cardiac size is upper normal for portable positioning. There is a small nodule like density projected over the heart inferiorly to the left of the spine of uncertain significance, possibly a lung nodule. There is no lung nodule in this location on the most recent chest CT dated 07/06/2019. IMPRESSION: Diffuse bilateral interstitial coarsening that has increased. No focal infiltrate or pleural effusion. Questionable new lung nodule projected above the left hemidiaphragm, over the heart, to the left of the spine as discussed above. <Electronically signed by Chase Salazar > 04/16/21 1020
[2021-04-16] MEDS ORDERED: AMPICILLIN SOD 2 GM in D5W MINI-BAG PLUS 100 ML IV SCH (12:00)
[2021-04-16] MEDS: cefTRIAXone SOD 2 GM in D5W MINI-BAG PLUS 50 ML IV SCH ×2 (12:11→21:43)
[2021-04-16] MEDS: D5W/0.9% SODIUM CHLORIDE 1,000 ML IV SCH ×2 (12:11→14:46)
--- NOTE | 2021-04-16 13:04 | ECGEPIP ---
[facility] Test Date: 2021-04-16 Pat Name: SHIKHA CARR Department: Room: [place] [address] Gender: Female Bench Manager: elaine : 1940 Requested By: CUAUHTEMOC WILLIAM D.O. Order Number: [id number] Reading MD: Ebony Estrella Measurements Intervals [place] Rate: 84 P: NH: QRS: -55 QRSD: 112 T: 247 QT: 414 QTc: 489 Interpretive Statements Accelerated Junctional rhythm Left axis deviation LAFB Low voltage QRS Incomplete right bundle branch block Inferior infarct , age undetermined ST & T wave abnormality, consider anterolateral ischemia ALSO NONSPECFIC INF ST CHANGES NEW PRIOR WITH AFIB CONSIDER DIGOXIN TOXICITY Electronically Signed on 04-16-2021 13:04:13 EDT by Ebony Estrella
[2021-04-16] MEDS: AMPICILLIN SOD 2 GM in D5W MINI-BAG PLUS 100 ML IV SCH ×2 (14:46→20:57)
--- NOTE | 2021-04-16 16:35 | REP ---
INDICATION: Anuric FLAKIAT. COMPARISON: Whole-body abdominal ultrasound performed earlier today. TECHNIQUE: Multiple ultrasonographic images of the kidneys. FINDINGS: The study is extremely limited because of patient body habitus, edema and performed portably. Additionally, the patient is not alert and unable to suspend respirations or roll and turn and required. The right kidney measures 10.9 x 4.7 x 5.7 cm. The left kidney measures 9.4 x 4.7 x 5.7 cm. The kidneys are in the low normal size range. Renal cortical echogenicity is normal bilaterally. Mild hydronephrosis is suspected on the right.. The left kidney is extremely difficult to visualize. No definite hydronephrosis is identified on the left. A 6 mm calculus, nonobstructive, is identified in the left renal upper pole. No definite renal masses or cysts are identified, however, the kidneys are poorly visualized. Bladder: The bladder could not be visualized. IMPRESSION: Very limited study as discussed above. Question mild hydronephrosis on the right. Small left renal upper pole nonobstructive calculus. <Electronically signed by Chase Salazar > 04/16/21 [id number]
[2021-04-16 16:49] LABS: HEMATOCRIT 30.6 % (36.0-47.0); HEMOGLOBIN 9.9 g/dl (12.0-15.5); MEAN CORPUSCULAR HEMOGLOBIN 30.4 pg (27.0-33.0); MEAN CORPUSCULAR HGB CONC 32.4 g/dl (32.0-36.5); MEAN CORPUSCULAR VOLUME 93.9 fl (80.0-96.0); RED BLOOD COUNT 3.26 10^6/uL (4.00-5.40)
[2021-04-16 16:56] LABS: PLATELET COUNT, AUTOMATED 61 10^3/uL (150-450)
[2021-04-16 17:24] LABS: ALBUMIN 1.8 GM/DL (3.2-5.2); BILIRUBIN,TOTAL 1.9 MG/DL (0.2-1.0); CALCIUM LEVEL 6.7 MG/DL (8.8-10.2); CK-MB VALUE MASS 24.2 NG/ML (<3.6); CREATININE FOR GFR 2.54 MG/DL (0.55-1.30); GLOMERULAR FILTRATION RATE 19.4 (>32); MB/CK RELATIVE INDEX 2.41 (< OR =4); POTASSIUM SERUM 4.2 MEQ/L (3.5-5.1); TOTAL PROTEIN 5.9 GM/DL (6.4-8.2); TROPONIN I 6.32 NG/ML (< 0.10)
[2021-04-16 17:46] LABS: LYMPHOCYTES 7 % (16-44); MONOCYTES 5 % (0-5); MYELOCYTES 1 % (0-0); NEUTROPHILS 85 % (28-66)
[2021-04-16 17:47] LABS: ANISOCYTOSIS 1+; OVALOCYTES 1+; PLATELET ESTIMATE DECREASED (NORMAL); POIKILOCYTOSIS 1+; POLYCHROMASIA 1+
[2021-04-16] MEDS ORDERED: NOREPINEPHRINE BITARTRATE 8 MG in D5W 492 ML IV SCH (20:00)
[2021-04-16 21:41] LABS: VENOUS BASE EXCESS -12.4 (-2.0-2.0); VENOUS HCO3 12.2 MEQ/L (23.0-27.0); VENOUS O2 SATURATION 98.4 % (60.0-80.0); VENOUS PARTIAL PRESSURE CO2 23.8 mmHg (38.0-50.0); VENOUS PARTIAL PRESSURE O2 124.1 mmHg (30.0-50.0); VENOUS PH 7.326 UNITS (7.330-7.430); VENOUS STANDARD HCO3 14.6 MEQ/L; VENOUS TOTAL CO2 12.9 MEQ/L (24.0-28.0)
--- NOTE | 2021-04-16 23:00 | IPN ---
NEPHROLOGY PROGRESS NOTE DATE: 04/16/2021 SUBJECTIVE: I have attended Mrs. Mcneil this evening again. I reviewed her labs done at 4:22 p.m. which showed BUN of 52 and creatinine 2.54. CO2 down to 16, suggestive of metabolic acidosis. Her lactic acid level is slightly improved to 2.2. The patient has been given a large amount of IV fluids with a total intake of about 8 liters and urine output of only 67 mL since admission. She is positive by about almost 7.7 liters so far. She has developed generalized edema and she is tachypneic but still has maintained her oxygenation. She has minimal urine output. Unfortunately central line placement was unsuccessful twice and she has not received pressors so far. I discussed the situation with her son, Anurag Mcneil over the phone and explained to him about the potential need for dialysis. He consented over the phone, both for dialysis catheter placement and for dialysis treatment. I explained to him that she will be a candidate for CRRT which will be performed at her bedside. I answered all his questions to his satisfaction. He indicated that he will be on his way to [facility] and reach here by later tomorrow afternoon. At this time the patient is still not responding to any verbal questions or tactile stimulus. She is still moaning. She has developed generalized edema and some obvious wheezing. She is tachypneic with a respiratory rate up to 40 at times. OBJECTIVE: PHYSICAL EXAMINATION: VITAL SIGNS: Temperature is 99.5 degrees Fahrenheit and heart rate is now 80's. Blood pressure as low as 87/49 and as high as 104/49 mm of mercury during the last few hours. HEENT: Head is atraumatic. NECK: Her neck veins are quite prominent now. HEART: Irregular in rhythm. LUNGS: Expiratory wheezing and diminished breath sounds at dependent parts. ABDOMEN: Obese, soft and nontender and bowel sounds are hypoactive. EXTREMITIES: General edema on all four limbs but no cyanosis or clubbing. NEUROLOGICAL: She remains unresponsive. LABORATORY STUDIES: I have reviewed all her recent labs once again. BUN is 52 and creatinine 2.54. Chloride 113 and CO2 16. Sodium 142 and potassium 4.2. CPK is down to 1,006 and troponin is 6.32. Total protein 5.9 and albumin 1.8. We did a venous blood gas which showed a pH of 7.32, pco2 of 23.8 and pO2 124. Bicarbonate is down to 12. PROBLEMS: 1. Oliguric acute renal failure. 2. Septic shock. 3. Gram positive bacteremia as her blood culture has just come back positive. 4. Hypervolemia and generalized anasarca. 5. Elevated troponin. 6. Urinary tract infection. The patient has septic shock with gram positive bacteremia and also has a urinary tract infection. It remains to be seen what her urine culture shows. Her mentation has deteriorated and she is now poorly responsive. I have received consent for dialysis and for dialysis catheter placement from her son, Anurag Mcneil. CRRT is going to be started at her bedside. We are going to stop the IV fluids. We will try fluid removal with CRRT and see how she does. At this point I would recommend to continue broad spectrum coverage for gram positive and gram negative bacteremia. It is possible that the patient has bacteremia due to urinary infection, however this may just a different organism. Her acidosis is likely to respond to CRRT, and at this point no need for IV fluids or IV sodium bicarbonate. Thirty-eight minutes of critical care time spent during which no procedures were performed. SAV
[2021-04-17] VITALS (25 sets, daily range): BP systolic 96–129; BP diastolic 49–63
[2021-04-17] MEDS: AMPICILLIN SOD 2 GM in D5W MINI-BAG PLUS 100 ML IV SCH ×2 (05:32→14:27)
[2021-04-17] MEDS: LEVOTHYROXINE 100MCG (0.1MG) VIAL IV SCH (05:33)
[2021-04-17 05:38] LABS: BASO # 0.1 10^3/uL (0.0-0.2); BASO % 0.3 % (0.0-1.0); EOS # 0.1 10^3/uL (0.0-0.5); EOS % 0.7 % (0.0-3.0); HEMATOCRIT 31.1 % (36.0-47.0); HEMOGLOBIN 10.1 g/dl (12.0-15.5); LYMPH # 1.5 10^3/uL (1.5-5.0); MEAN CORPUSCULAR HEMOGLOBIN 30.1 pg (27.0-33.0); MEAN CORPUSCULAR HGB CONC 32.5 g/dl (32.0-36.5); MEAN CORPUSCULAR VOLUME 92.8 fl (80.0-96.0); MONO # 0.9 10^3/uL (0.0-0.8); NEUTROPHILS # 11.8 10^3/uL (1.5-8.5); NEUTROPHILS % 78.2 % (36.0-66.0); RED BLOOD COUNT 3.35 10^6/uL (4.00-5.40); WHITE BLOOD COUNT 15.1 10^3/uL (4.0-10.0)
[2021-04-17 05:41] LABS: PLATELET COUNT, AUTOMATED 56 10^3/uL (150-450)
[2021-04-17] MEDS: HumaLOG INSULIN (NovoLOG) PER UNIT SC SCH ×4 (06:00→18:00)
--- NOTE | 2021-04-17 06:29 | CR ---
CONSULTATION DATE: 04/16/2021 REFERRING PHYSICIAN: TRICE OWEN MD REASON FOR CONSULTATION: Oliguric acute renal failure. HISTORY OF PRESENT ILLNESS: Mrs. Mcneil is an elderly female who was admitted to [facility] yesterday as she was found on the floor by her neighbors. She was felt to be on the floor for about at least 24 hours. She was found to have hypothermia, hypotension and hypoglycemia. She has multiple issues and she is now in the Intensive Care Unit. She has no urine output and I was called for a Nephrology consultation this morning. She is being treated for septic shock. She has received a large volume of IV fluids due to hypotension, however still has no urine output. PAST MEDICAL HISTORY: According to the records, she has a history of: 1. Diabetes. 2. Hypertension. 3. Hypothyroidism. 4. Hypercholesterolemia. Her medication of Humira is suggestive of possible rheumatoid arthritis. The patient herself is not able to give me any information at this point. The patient's family is not available at this point and her records are reviewed. Apparently, she has not been admitted to [facility] in the recent past. According to her prior records, she has a history of diabetes, hypothyroidism, hypertension, hypercholesterolemia, depression, psoriatic arthritis, urinary stress incontinence, diabetic neuropathy, and history of rheumatic fever. PAST SURGICAL HISTORY: Significant for a history of: 1. Hysterectomy. 2. Cholecystectomy. 3. Bilateral knee replacement. 4. Left ankle surgery. MEDICATIONS: According to the records, her home medications include: 1. Humira 40 mg every two weeks. 2. Atenolol 50 mg half a tablet daily. 3. Vitamin D 25 mcg daily. 4. Vitamin B12 500 mcg daily. 5. Duloxetine 30 mg at bedtime. 6. Novolog insulin 12 units b.i.d. 7. Tresiba insulin 80 units daily. 8. Irbesartan 150 mg daily. 9. Levothyroxine 125 mcg daily. 10.Crestor 20 mg daily. 11.Januvia 50 mg daily. ALLERGIES: She has no known drug allergies. PERSONAL AND SOCIAL HISTORY: No known history for alcohol, tobacco or drug use. FAMILY HISTORY: Noncontributory. REVIEW OF SYSTEMS: Apparently, the patient was found on the floor by her neighbors. She was hypothermic, hypotensive and hypoglycemic. In the hospital, she did become responsive and was lucid enough to communicate with her providers. She did express her wish to be a DNR and do not intubate. This morning she has deteriorated in her mentation and now she is moaning but not responding. She is unable to answer any questions. Her blood pressure has been low and she has received a large volume of IV fluids for a total of about 6 liters. She still has no urine output. A central line placement was attempted by the Emergency Room physician and by Intensive Care attending, however it was unsuccessful. PHYSICAL EXAMINATION: GENERAL: Elderly morbidly obese lady laying in the bed with eyes closed. VITAL SIGNS: Temperature is 99.7 degrees Fahrenheit, heart rate 84 per minute and respiratory rate about 40 per minute, blood pressure is 97/50 mmHg and oxygen saturation 95% on room air. HEENT: Head is atraumatic. Her eyes are closed. NECK: Neck veins are not quite prominent. HEART: Heart sounds are irregular in rhythm. LUNGS: Mild expiratory wheezing with diminished breath sounds. ABDOMEN: Obese and nontender. Bowel sounds are present. EXTREMITIES: Without any cyanosis or clubbing. NEUROLOGIC: She is unresponsive. She is moaning but does not answer any questions. LABORATORY DATA: On admission her WBC count was 16.3, hemoglobin 12.3 and hematocrit 38.4, platelets 72,000. Venous blood gas on admission showed a pH of 7.32, pCO2 39.8 and pO2 of 59.9. This morning blood gas showed a pH of 7.45, pCO2 22.6 and pO2 of 103. Bicarbonate is 19. Her admission chemistries showed BUN 49, creatinine 1.7 and troponin 3.8. Sodium 139, potassium 4.1 and CO2 21. Initial CPK level was 2263. A repeat lactic acid was 4.1 and troponin 3.62. This morning BUN is 48, creatinine 2.0, lactic acid 2.6, sodium 143, potassium 4.3, troponin 5.88. CPK level 1419. A TSH level is 17.3. Urinalysis showed too numerous to count WBCs and 9 RBCs. Digoxin level this morning is 1.4. PROBLEMS: 1. Oliguric acute renal failure, most likely this is related to prolonged hypotension and sepsis. She has received large volume of IV fluid, however she still has no urine output. Will watch for the next six hours and see how she does. If she does not make any urine, then we may have to consider dialysis. So far, she does not have any significant acidosis or hyperkalemia. She is oxygenating well despite large volume of IV fluid that she has received. 2. Lactic acidosis, probably related to prolonged hypotension and sepsis. At this point, her lactic acidosis has slightly improved after she received large volume of IV fluid. At this point, there is no emergent need for dialysis or IV sodium bicarbonate. Will watch for the next six hours and then make a decision about changing IV fluid or consider dialysis. She has already received Vancomycin and Zosyn. I think this is appropriate coverage for her sepsis. 3. Septic shock. Blood pressure is still somewhat low. She has received a large amount of fluid. Unfortunately, a central line could not be placed and she is not receiving any pressors so far. We will watch for the next few hours and see how she does. At this point there is no emergent need for pressors as her blood pressure has partially improved. 4. Elevated troponin. Cardiology has been consulted and she is not considered to be a candidate for intervention at this point. Thank you for involving me in the care of Mrs. Mcneil. I will follow her along with you.
[2021-04-17 06:30] LABS: ALBUMIN 1.8 GM/DL (3.2-5.2); BILIRUBIN,TOTAL 1.8 MG/DL (0.2-1.0); CALCIUM LEVEL 7.2 MG/DL (8.8-10.2); CK-MB VALUE MASS 24.8 NG/ML (<3.6); CREATININE FOR GFR 2.36 MG/DL (0.55-1.30); GLOMERULAR FILTRATION RATE 21.1 (>32); MAGNESIUM LEVEL 2.3 MG/DL (1.8-2.4); MB/CK RELATIVE INDEX 1.95 (< OR =4); TOTAL PROTEIN 6.7 GM/DL (6.4-8.2); TROPONIN I 4.78 NG/ML (< 0.10)
[2021-04-17] MEDS: DOCUSATE SODIUM 100MG CAPSULE PO SCH ×2 (07:18→20:41)
[2021-04-17] MEDS: CALCIUM GLUCONATE 1,000 MG in NS 100 ML IV SCH ×4 (08:05→13:34)
--- NOTE | 2021-04-17 08:49 | IPNPDOC ---
Text Note Date of Service The patient was seen on 04/17/21. NOTE Subjective: Pt was brought into the hospital with hypoglycemia, hypotension, and hypothermia. Today when patient was seen lying supine in her bed. Patient was more talkative (incomprehensible speech and opened her eyes to pain) then yesterday GCS today was 8 eyes (2), Verbal (2), and motor (4). Patient is still not alert and oriented. Review of systems: Patient was non-responsive to questions. Physical exam: General: Patient is hypothermic Body temperature was 95.9 degrees Fahrenheit despite warming measures. Psych: Patient is not alert and oriented and GCS is 8 eyes (2), Verbal (2), and motor (4). HEENT: Patient has no visible thyromegaly or lymph node enlargement, but nuchal rigidity is still present. Heart: Patient as S3 heart sound best heard at tricuspid region. S1 and S2 are present no other heart sounds or murmurs are Auscultated. Lungs: Patients tachypnea is better than yesterday. Respiratory rate was 29 in the morning. Her breaths are deeper and much better than yesterday. Extremities: No edema and pulses were 2/4 BL. ABD: No tenderness on abdominal palpation. Assessment: 80 year old female with past medical history that includes hypothyroidism, Diabetes, hypertension, and rheumatoid arthritis. Patient was found on the floor of her bathroom and on evaluation in the emergency room was found to be hypotensive, hypoglycemia, and hypothermic. Patient was found to have a urinalysis suggestive of UTI on admission and and positive blood cultures for gram-positive cocci in clusters, patient is being treated for septic shock from UTI and possible meningitis. Patient has also developed FLAKITA from hypotension and rhabdomyolysis, elevated troponin's from unknown cause (presumed from initial shock episode but no ischemic changes found on ECG), and elevated liver enzymes from hypotension. Plan: Septic shock -bacteremic, source may be urinary versus SEED TESTER - Patient's hypotension is being controlled with fluids. Patient has received over 8L of fluids since admission. - Lactic acidosis: 4.1 initially, trended down to 2.6. -General surgery consulted for placement of central line. Dr. Bergeron felt central line placement was not urgent as the patient has been fluid responsive. Considering her low urine output, we are concerned that she will be fluid overloaded at some point and require discontinuation of IV fluids. If she becomes hypotensive at that point she will emergently need central line placement for administration of pressors. - Blood cultures show Gram positive cocci in clusters - Patient was initially being treated on Zosyn and vancomycin. Changing antibiotics to Vancomycin, Ceftriaxone, and ampicillin (day #1) to cover for possible meningitis due to the patient's encephalopathy and nuchal rigidity. FLAKITA with oliguria: - Patient creatinine has increased since admission from 1.71 -> 2.00 -> 2.54 (16:-04/16/21) -> 2.36 (: -04/17/21), BUN was 49 on admission and 48 -> 56 (:) -> 46 (: - 04/17/21). - ATN - could have been caused by hypotension, Rhabdomyolysis, or infection. - Since admission the patient has only made 120ml of urine overnight despite receiving over 8L of fluids since admission - We will continue to monitor Creatinine and BUN. - Nephrology consulted, appreciate recommendations. Rhabdomyolysis: - Elevated CK was found on admission and it has trended down, went slightly up from last night- (2263 -> 1419 -> 1006 (16:22 - 04/16/21) -> 1271 (: - 04/17/21) - We will continue to monitor labs and continue with IV fluid resuscitation. Possible Meningitis: - Patient has bacteremia, nuchal rigidity, and Altered mental status on physical examination. - Antibiotic coverage as above A. fib with RVR: New presumably new onset, developed overnight after admission Patient is status post IV digoxin, currently rate controlled We will avoid anticoagulation at this point given her thrombocytopenia Elevated troponin 3.62 on admission -> 5.88 - (morning 04/16/21) -> 6.32 (16:22 - 04/16/21) -> 4.28 (5: - 04/17/21), potentially related to demand ischemia, rule out ACS - EKG was ordered at admission and today in the morning - No new ischemic changes were seen on EKG. - Echocardiogram shows no pathology that would lead to ischemic changes indicated by elevated troponin levels. Elevated liver enzymes- most likely from prolonged hypotension - Patient has elevated AST and bilirubin. We will continue to monitor labs daily Tachypnea - Most likely caused by compensatory response to metabolic acidosis from lactic acidosis. Patient's respiratory rate was in the high 20s today which is improv ement from yesterday when it was in the high 30s. - CXR was negative for any lung pathology, although does show some early signs of fluid congestion likely from IV fluid administration. Hypoglycemia -Monitor FSBS every 6 hours Added D5 to IV fluids Hypoglycemic protocol Hypothyroidism - Patient had elevated TSH on admission, likely sick euthyroid syndrome -T4 level normal, can consider follow-up TSH in the outpatient setting if patient recovers DVT Prophylaxis: - Patient is thrombocytopenic (56K this morning and 49K at 11:30 today), holding anticoagulants for right now. - teds and SCDs CODE STATUS: DNR/DNI Patient initially indicated on admission that she wants to be DNR/DNI when she was felt to be in a lucid state to make her own decisions. When talking to the patient's stated health proxy this morning as the patient was nonresponsive, this CODE STATUS has been confirmed. Disposition: Prognosis is currently guarded as the patient is critically ill. We will continue to discuss the care plan moving forward with the family. GME ATTESTATION My faculty preceptor for this patient encounter was physically present during the encounter and was fully available. All aspects of the patient interview, examination, medical decision making process, and medical care plan development were reviewed and approved by the faculty preceptor. The faculty preceptor is aware and concurs with the plan as stated in the body of this note and will attest to such by his/her cosignature. ATTENDING NOTE I personally examined Ms. Mcneil, discussed her findings, data, clinical progression and plan with the housestaff team as accurately stated above. I also updated her family in detail about the findings thus far, treatment plan and guarded prognosis. I also had an extensive discussion with pharmacy that had a discussion with ID about her antibiotic therapies and the brief synopsis of her clinical course is as follows: 1. She presented in septic shock, renal failure and encephalopathic 2. She was started on aggressive IVF, empiric vanc and piptazo and pancultured 3. On day 2 AM she became obtunded with severe neck rigidity with anuria. We consulted nephrology and switched antibiotics at that time to vanc, ceftriaxone and ampicillin at a time that microbiology data was still in process, solely based on the clinical picture of meningisms on exam and rare contact with healthcare settings with low suspicion of pseudomonas. 4. Day 3 AM she had been started on CRRT by nephrology, grimacing and moving around with FROM of neck and confused with moaning and otherwise moving all extremities. During the midmorning admission BCx showed GPCs in clusters likely staph while UCx showed pansensitive E.coli. We have now de-escalated her to Vanc and ceftriaxone and discontinued the ampicillin with low suspicion for listeria meningitis. 5. BP has now normalized to the extent that they have started taking off fluid with CRRT cautiously. She has also had a TTE with a pending final read. 6. Plan at this point is closely monitor given her guarded prognosis and if she improves clinically to reach a stage where more imaging is possible, we will appropriately pursue seeding studies given her persistent bacteremia given positive 04/16 cultures with MRI of total spine and possible brain MRI as well. We will also consider an LP. At this time, she is too critically ill to be pursuing these studies and is on continuous [employer] and will be continue treating with empiric antibiotics. The duration of antibiotics will ultimately be dictated by extent of infection and results of the seeding studies. VS,Fishbone, I+O VS, Fishbone, I+O Laboratory Tests 04/16/21 16:22 04/17/21 05:15 Vital Signs Date Time Temp Pulse Resp B/P (MAP) Pulse Ox O2 Delivery O2 Flow Rate FiO2 04/17/21 07:01 95.9 80 30 124/54 (77) 97 Room Air I&O- Last 24 Hours up to 6 AM 04/17/21 05:59 Intake Total 2945 ml Output Total 51 ml Balance 2894 ml CHANDLER RUBIO OMS-3 Apr 17, 2021 08:49 CROW MAHONEY MD Apr 17, 2021 19:06 CUAUHTEMOC WILLIAM D.O. Apr 17, 2021 19:08
[2021-04-17] MEDS ORDERED: SODIUM CHLORIDE 0.9% INJ 10 ML SYR IV PRN (09:35)
--- NOTE | 2021-04-17 10:17 | RO ---
OPERATIVE NOTE DATE OF OPERATION: 04/16/2021 PREOPERATIVE DIAGNOSIS: Oliguric acute renal failure and need for dialysis. POSTOPERATIVE DIAGNOSIS: PROCEDURE: Right femoral vein hemodialysis catheter placement. SURGEON: Blanka Lew MD WOOL SAMPLER: ANESTHESIA: INDICATION: The patient is unresponsive and unable to consent. Telephone consent was obtained from the patient's son, Anurag Mcneil, after explaining the need for procedure. DESCRIPTION OF PROCEDURE: Right femoral area was cleaned and prepped in the usual sterile fashion. 1% lidocaine used for local anesthesia. Right femoral vein was accessed through the micropuncture and guidewire advanced without any difficulty. Small skin incision made at the site of guidewire and skin and soft tissues dilated with skin dilator. Hemodialysis catheter then advanced over the guidewire without any problem and good venous blood was then obtained from all three ports. Catheter was flushed with saline and sutured in place. The patient tolerated the procedure well. Blood loss was about 10 ml. No complications.
[2021-04-17] MEDS: cefTRIAXone SOD 2 GM in D5W MINI-BAG PLUS 50 ML IV SCH ×2 (10:48→22:46)
[2021-04-17 12:05] LABS: HEMATOCRIT 29.8 % (36.0-47.0); HEMOGLOBIN 9.7 g/dl (12.0-15.5); MEAN CORPUSCULAR HEMOGLOBIN 30.4 pg (27.0-33.0); MEAN CORPUSCULAR HGB CONC 32.6 g/dl (32.0-36.5); MEAN CORPUSCULAR VOLUME 93.4 fl (80.0-96.0); RED BLOOD COUNT 3.19 10^6/uL (4.00-5.40); WHITE BLOOD COUNT 13.7 10^3/uL (4.0-10.0)
[2021-04-17 12:11] LABS: PLATELET COUNT, AUTOMATED 49 10^3/uL (150-450)
[2021-04-17 12:20] LABS: CALCIUM LEVEL 7.9 MG/DL (8.8-10.2); CREATININE FOR GFR 1.73 MG/DL (0.55-1.30); GLOMERULAR FILTRATION RATE 30.2 (>32); MAGNESIUM LEVEL 2.2 MG/DL (1.8-2.4); PHOSPHORUS LEVEL 2.5 MG/DL (2.5-4.9); POTASSIUM SERUM 3.7 MEQ/L (3.5-5.1)
--- NOTE | 2021-04-17 12:54 | CCN ---
NEPHROLOGY CRITICAL CARE PROGRESS NOTE DATE: 04/17/2021 SUBJECTIVE: Mrs. Mcneil is seen this morning on her bedside in the intensive care unit. She has been on continuous renal replacement therapy (CRRT) since last evening. She has minimal urine output. However, her blood pressure has remained stable. She has not required pressors. Nursing staff reports that she has been about 250 mL negative in her fluid balance since CRRT has been started. Patient remains poorly responsive. She is moaning and making noise without any ability to communicate. PHYSICAL EXAMINATION: VITAL SIGNS: Temperature 96 degrees Fahrenheit, heart rate 82 per minute, respiratory rate 22 per minute, blood pressure 110/52 mmHg, oxygen saturation 96% on room air. HEAD: Atraumatic. NECK: Supple and jugular venous distention (JVD) is elevated about 12 cm above sternal angle. HEART SOUNDS: Regular. LUNGS: Mild expiratory wheezing. She has diminished breath sounds at the bases. ABDOMEN: Obese, soft and nontender. Bowel sounds are normal. EXTREMITIES: Without any cyanosis or clubbing. There is generalized edema on all four limbs. NEUROLOGIC: She remains confused and unable to communicate. LABORATORY DATA: Today's labs show sodium 142, potassium 4.2, CO2 20, BUN 46, creatinine 2.36, glucose 141, calcium 7.2. CPK was 1271. WBC 15.1, hemoglobin 10.1, hematocrit 31, platelets 56,000. PROBLEMS: 1. Acute oliguric renal failure. Patient still has minimal urine output. She remains on continuous renal replacement therapy (CRRT) and will continue with the same. I renewed her CRRT orders. 2. Metabolic acidosis. Her acidosis has improved and we will continue with the CRRT. 3. Generalized hypovolemia and edema. She received about 8 liters of intravenous (IV) fluid yesterday due to hypotension. Now she has generalized edema and we are trying to remove about 50 mL per hour with CRRT. We are concerned about low blood pressure, so I do not want too aggressive fluid removal. 4. Septic shock. Patient has Escherichia (E) coli in her urine culture. Blood cultures have also come back positive, according to the preliminary report. However, the final report is still pending. She remains on antibiotics with vancomycin and now she has been switched to ampicillin along with ampicillin. She is also on ceftriaxone every 12 hours 2 grams. There was also concern about meningitis due to altered mentation and neck stiffness. She remains on three antibiotics for now. Overall, her prognosis remains guarded. She has a DO NOT RESUSCITATE (DNR) status. Thirty-three minutes of critical care time spent, during which no procedures were performed.
[2021-04-17] MEDS ORDERED: KCL 20MEQ IN 100ML SWI (KRUN) 20 MEQ in IV 1 EA IV ONE ×4 (13:00→18:30)
[2021-04-17] MEDS ORDERED: CALCIUM GLUCONATE 1,000 MG in NS 100 ML IV ONE (18:00)
[2021-04-17 18:05] LABS: HEMATOCRIT 30.6 % (36.0-47.0); HEMOGLOBIN 9.9 g/dl (12.0-15.5); MEAN CORPUSCULAR HEMOGLOBIN 30.1 pg (27.0-33.0); MEAN CORPUSCULAR HGB CONC 32.4 g/dl (32.0-36.5); RED BLOOD COUNT 3.29 10^6/uL (4.00-5.40)
[2021-04-17 18:07] LABS: PLATELET COUNT, AUTOMATED 47 10^3/uL (150-450)
[2021-04-17 18:23] LABS: CALCIUM LEVEL 7.8 MG/DL (8.8-10.2); CREATININE FOR GFR 1.52 MG/DL (0.55-1.30); MAGNESIUM LEVEL 2.2 MG/DL (1.8-2.4); PHOSPHORUS LEVEL 2.1 MG/DL (2.5-4.9); POTASSIUM SERUM 3.8 MEQ/L (3.5-5.1)
[2021-04-17] MEDS ORDERED: SODIUM PHOSPHATE INJ 30 MMOL in D5W 250 ML IV ONE (20:00)
[2021-04-17] MEDS ORDERED: VANCOMYCIN HCL 750 MG, VIAL MATE ADAPTER 1 EACH in NS 250 ML IV SCH (23:00)
[2021-04-18] VITALS (26 sets, daily range): BP systolic 98–157; BP diastolic 46–71; O2SAT 95–97
[2021-04-18] MEDS ORDERED: VANCOMYCIN HCL 750 MG, VIAL MATE ADAPTER 1 EACH in NS 250 ML IV SCH ×3
[2021-04-18 00:30] LABS: HEMATOCRIT 30.8 % (36.0-47.0); HEMOGLOBIN 10.1 g/dl (12.0-15.5); MEAN CORPUSCULAR HEMOGLOBIN 30.7 pg (27.0-33.0); MEAN CORPUSCULAR HGB CONC 32.8 g/dl (32.0-36.5); MEAN CORPUSCULAR VOLUME 93.6 fl (80.0-96.0); RED BLOOD COUNT 3.29 10^6/uL (4.00-5.40); WHITE BLOOD COUNT 13.5 10^3/uL (4.0-10.0)
[2021-04-18 00:47] LABS: PLATELET COUNT, AUTOMATED 43 10^3/uL (150-450)
[2021-04-18] MEDS: CALCIUM GLUCONATE 1,000 MG in NS 100 ML IV SCH ×2 (01:13→02:47)
[2021-04-18 01:36] LABS: CALCIUM LEVEL 7.6 MG/DL (8.8-10.2); CREATININE FOR GFR 1.45 MG/DL (0.55-1.30); POTASSIUM SERUM 3.9 MEQ/L (3.5-5.1)
[2021-04-18 01:37] LABS: MAGNESIUM LEVEL 2.1 MG/DL (1.8-2.4); PHOSPHORUS LEVEL 3.9 MG/DL (2.5-4.9)
[2021-04-18] MEDS ORDERED: KCL 20MEQ IN 100ML SWI (KRUN) 20 MEQ in IV 1 EA IV ONE ×6 (02:00→14:00)
[2021-04-18] MEDS: HYDROMORPHONE HCL 0.5 MG/ 0.5 ML SYRINGE (J1170 PER 1) IV PRN ×3 (02:42→21:03)
[2021-04-18 05:21] LABS: BASO % 0.3 % (0.0-1.0); EOS # 0.3 10^3/uL (0.0-0.5); EOS % 2.2 % (0.0-3.0); HEMATOCRIT 29.4 % (36.0-47.0); HEMOGLOBIN 9.6 g/dl (12.0-15.5); LYMPH # 1.3 10^3/uL (1.5-5.0); LYMPH % 10.8 % (24.0-44.0); MEAN CORPUSCULAR HEMOGLOBIN 30.7 pg (27.0-33.0); MEAN CORPUSCULAR HGB CONC 32.7 g/dl (32.0-36.5); MEAN CORPUSCULAR VOLUME 93.9 fl (80.0-96.0); MONO # 0.6 10^3/uL (0.0-0.8); NEUTROPHILS # 9.1 10^3/uL (1.5-8.5); NEUTROPHILS % 76.8 % (36.0-66.0); RED BLOOD COUNT 3.13 10^6/uL (4.00-5.40); WHITE BLOOD COUNT 11.9 10^3/uL (4.0-10.0)
[2021-04-18 05:23] LABS: PLATELET COUNT, AUTOMATED 35 10^3/uL (150-450)
[2021-04-18] MEDS: LEVOTHYROXINE 100MCG (0.1MG) VIAL IV SCH (05:48)
[2021-04-18 05:50] LABS: ALBUMIN 1.7 GM/DL (3.2-5.2); BILIRUBIN,TOTAL 1.8 MG/DL (0.2-1.0); CALCIUM LEVEL 7.7 MG/DL (8.8-10.2); CREATININE FOR GFR 1.36 MG/DL (0.55-1.30); GLOMERULAR FILTRATION RATE 39.8 (>32); MAGNESIUM LEVEL 2.1 MG/DL (1.8-2.4); PHOSPHORUS LEVEL 3.2 MG/DL (2.5-4.9); POTASSIUM SERUM 3.9 MEQ/L (3.5-5.1); TOTAL PROTEIN 6.1 GM/DL (6.4-8.2)
[2021-04-18] MEDS ORDERED: CALCIUM GLUCONATE 1,000 MG in NS 100 ML IV ONE ×3 (06:00→18:30)
[2021-04-18] MEDS: HumaLOG INSULIN (NovoLOG) PER UNIT SC SCH ×4 (06:00→18:00)
[2021-04-18] MEDS: DOCUSATE SODIUM 100MG CAPSULE PO SCH ×2 (07:09→20:42)
--- NOTE | 2021-04-18 08:24 | ECHO ---
ECHOCARDIOGRAM DATE OF PROCEDURE: 04/16/2021 Age: 80 Patient location: Room 3210 REFERRING PHYSICIAN: Dr. Chele Platt INDICATION: Syncope 2D MEASUREMENTS: IVS 1.4 cm LV 4.4 cm LVPW 1.3 cm LA 4.7 cm Aorta 3.5 cm DOPPLER MEASUREMENTS: Peak velocity across the aortic valve: 2.5 m/s Peak velocity across the LVOT 1.1 m/s Peak gradient across the aortic valve 26 mmHg Mean gradient across the aortic valve 16 mmHg Mitral E 1.6 Mitral A 0.9 with a ratio of 1.9 Maximum tricuspid valve velocity 2.5 m/s 2D COMMENTS: 1. Normal left ventricular size with mildly increased left ventricular wall thickness. Left ventricular systolic function is normal, estimated at 60%-65%. 2. Mildly enlarged left atrium. The right atrium also appeared to be mildly enlarged. Normal right ventricle noted in limited views. 3. The atrial septum appeared to be normal without evidence of defect or shunt. 4. Normal aortic root. 5. No pericardial effusion seen. 6. Mildly calcified aortic valve with mildly restricted leaflet motion. Moderately calcified mitral annulus with normal anterior mitral valve leaflet motion. Normal tricuspid valve. The pulmonic valve and posterior pulmonary artery branches were not well visualized. 7. The inferior vena cava was not visualized. DOPPLER: It detects mild aortic regurgitation, mild mitral regurgitation, mild tricuspid regurgitation, and mild pulmonic regurgitation. The calculated pulmonary artery systolic pressure varies between 30-40 mmHg. Assessment of the left ventricular diastolic function appeared to be normal. IMPRESSION: 1. Normal global left ventricular systolic function with mild concentric left ventricular hypertrophy. Assessment of the left ventricular diastolic function appeared to be normal. That may be artifactual in view of the mitral annulus calcification. 2. Aortic valve sclerosis with mild aortic regurgitation and mild aortic stenosis. 3. Mitral annulus calcification with mild mitral regurgitation and mild calcific mitral stenosis. There was a peak gradient of 11 mmHg across the mitral valve with a mean gradient of 5 mmHg. 4. Mild tricuspid regurgitation with mild to moderate hypertension and dilated right atrium. 5. Mild pulmonic regurgitation. 6. The study was technically limited due to poor acoustic window. [facility]
--- NOTE | 2021-04-18 09:14 | IPNPDOC ---
Text Note Date of Service The patient was seen on 04/18/21. NOTE Subjective: Patient was admitted to the hospital for hypotension, hypoglycemia, and hypothermia after being found by neighbors on the floor. The patient was found to be in septic shock. When the patient was seen today she was supine in her bed. The patient on exam appeared to be in the same condition as yesterday. Patient's GCS today was 9 - Eye (3), Verbal (2), and Motor (4). Review of systems: Patient is not able to respond to questions about her condition Physical exam: General: Temperature is 95.9 Fahrenheit - temperature dropped last night and her Body temp is being maintained by bear hugger. Psych: Not Alert or oriented at all. GCS - 9 Eye (3), Verbal (2), and Motor (4) HEENT: No visible thyromegaly or lymphadenopathy. Nuchal rigidity has improved since 1st admission but is still present. Heart: S3 heart sound is present on auscultation but is not as loud as 1st day of admission. S1 and S2 heart sounds are present and no other heart sounds or murmurs are present. Lungs: Respiratory rate is high teens today. Lung sounds diminished bilaterally, do not appreciate wheezing. Extremities: 2/4 pedal pulse and posterior pedal pulse. Neuro: Patient does not follow commands. Unable to assess for weakness. Patient winced when big toe on both feet were pinched. New Imaging: None Assessment: 80 year old female with past medical history that includes hy pothyroidism, Diabetes, hypertension, and rheumatoid arthritis. Patient was found on the floor of her bathroom and on evaluation in the emergency room was found to be hypotensive, hypoglycemia, and hypothermic. Patient was found to have a urinalysis suggestive of UTI on admission (found to be positive for E.Coli) and and positive blood cultures for gram-positive cocci in clusters, patient is being treated for septic shock and possible meningitis. Patient has also developed FLAKITA from hypotension and rhabdomyolysis, elevated troponin's from unknown cause (presumed from initial shock episode but no ischemic changes found on ECG), and elevated liver enzymes from hypotension. Plan: Septic shock -bacteremic, source may be urinary vs [employer] vs unknown - Hypotension has stabilized. Patient has received over 8L of fluids since admission, now having fluid removal with dialysis. No central access was able to be obtained. - Lactic acidosis: 4.1 initially, trended down to 2.6. - PICC line placed today for better peripheral access. 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 - Patient was initially being treated on Zosyn and vancomycin -> that was changed to Vancomycin, Ceftriaxone, and ampicillin to cover for possible meningitis due to the patient's encephalopathy and nuchal rigidity -> DC Ampicillin and Vancomycin today because Staphylococcus lugdunensis is found to be sensitive to Ceftriaxone, day #3 of antibiotics FLAKITA with oliguria: - Patient creatinine has increased since admission from 1.71 -> 2.00 -> 2.54 (16:22-04/16/21) -> 2.36 (5: -04/17/21) -> 1.36 (: - 04/18/21) - BUN decreased substantially last night - was 49 on admission and 48 -> 56 (16:22) -> 46 (5: - 04/17/21) -> 27 (5: - 04/18/21). - ATN - could have been caused by hypotension, Rhabdomyolysis, or infection. - Since admission the patient has only made 120ml of urine overnight despite receiving over 8L of fluids since admission. - We will continue to monitor BMP - Nephrology consulted, appreciate recommendations. - Patient is currently on CRRT per nephrology with fluid removal as tolerated by blood pressure Rhabdomyolysis, resolved - Elevated CK was found on admission and it has trended down - (2263 -> 1419 -> 1006 (16:22 - 04/16/21) -> 1271 (5: - 04/17/21) Possible Meningitis, less likely given developing clinical picture - Patient has bacteremia, nuchal rigidity, and Altered mental status on physical examination. Nuchal rigidity has decreased since admission but is still present. - we have de-escalated antibiotic coverage A. fib with RVR, resolved, currently in sinus rhythm New presumably new onset, developed overnight after admission Patient is status post IV digoxin, currently rate controlled We will avoid anticoagulation at this point given her thrombocytopenia Elevated troponin 3.62 on admission -> 5.88 - (morning 04/16/21) -> 6.32 (16:22 - 04/16/21) -> 4.28 (5:15 - 04/17/21), potentially related to demand ischemia, rule out ACS - EKGs reviewed - No new ischemic changes were seen - Echocardiogram report reviewed Elevated liver enzymes- most likely from prolonged hypotension, improved - Patient has elevated AST and bilirubin. We will continue to monitor labs daily Tachypnea, resolved - Most likely caused by compensatory response to metabolic acidosis from lactic acidosis. Patient's respiratory rate was in the high 10s today which is improvement from yesterday when it was in the high 20s. - CXR was negative for any lung pathology, although does show some early signs of fluid congestion likely from IV fluid administration. Hypoglycemia -Monitor FSBS every 6 hours Added D5 to IV fluids Hypoglycemic protocol Hypothyroidism - Patient had elevated TSH on admission, likely sick euthyroid syndrome -T4 level normal, can consider follow-up TSH in the outpatient setting if patient recovers DVT Prophylaxis: - Patient is thrombocytopenic (37K this morning and 49K at 11:25 yesterday), holding anticoagulants for right now. - teds and SCDs CODE STATUS: DNR/DNI Patient initially indicated on admission that she wants to be DNR/DNI when she was felt to be in a lucid state to make her own decisions. When talking to the patient's stated health proxy this morning as the patient was nonresponsive, this CODE STATUS has been confirmed. Disposition: Prognosis is currently guarded as the patient is critically ill. We will continue to discuss the care plan moving forward with the family. VS,Fishbone, I+O VS, Fishbone, I+O Laboratory Tests 04/17/21 11:29 04/17/21 17:32 04/17/21 17:33 04/18/21 00:15 04/18/21 05:07 Vital Signs Date Time Temp Pulse Resp B/P (MAP) Pulse Ox O2 Delivery O2 Flow Rate FiO2 04/18/21 08:15 95.9 78 16 98 Room Air 04/18/21 08:00 133/60 (84) I&O- Last 24 Hours up to 6 AM 04/18/21 06:00 Intake Total 1400 ml Output Total 3334 ml Balance -1934 ml CHANDLER RUBIO OMS-3 Apr 18, 2021 09:14 CUAUHTEMOC WILLIAM D.O. Apr 18, 2021 17:58
[2021-04-18] MEDS: cefTRIAXone SOD 2 GM in D5W MINI-BAG PLUS 50 ML IV SCH ×2 (10:41→23:06)
[2021-04-18 12:11] LABS: HEMATOCRIT 29.5 % (36.0-47.0); HEMOGLOBIN 9.7 g/dl (12.0-15.5); MEAN CORPUSCULAR HEMOGLOBIN 30.9 pg (27.0-33.0); MEAN CORPUSCULAR HGB CONC 32.9 g/dl (32.0-36.5); MEAN CORPUSCULAR VOLUME 93.9 fl (80.0-96.0); RED BLOOD COUNT 3.14 10^6/uL (4.00-5.40); WHITE BLOOD COUNT 13.4 10^3/uL (4.0-10.0)
[2021-04-18 12:14] LABS: PLATELET COUNT, AUTOMATED 36 10^3/uL (150-450)
[2021-04-18 12:39] LABS: CALCIUM LEVEL 8.2 MG/DL (8.8-10.2); CREATININE FOR GFR 1.1 MG/DL (0.55-1.30); GLOMERULAR FILTRATION RATE 50.9 (>32); MAGNESIUM LEVEL 2.1 MG/DL (1.8-2.4); PHOSPHORUS LEVEL 2.5 MG/DL (2.5-4.9); POTASSIUM SERUM 3.9 MEQ/L (3.5-5.1)
[2021-04-18] MEDS ORDERED: LIDOCAINE 1% MDV 20ML VIAL As Ordered ONE (13:59)
--- NOTE | 2021-04-18 15:18 | CCN ---
NEPHROLOGY CRITICAL CARE NOTE DATE: 04/15/2021 SUBJECTIVE: Ms. Mcneil is seen this morning on her bedside in the intensive care unit. Nursing staff report that she was given pain medication and she is currently resting. Yesterday, she was somewhat restless, but she is resting today much better. Her family did come in yesterday and had a chance to visit with her. Apparently, they have expressed their wishes to continue with the current care. Patient has slightly improved urine output; however, she is still on continuous renal replacement therapy (CRRT) due to acute renal failure. Her blood pressure is much better. PHYSICAL EXAMINATION: VITAL SIGNS: Temperature 97 degrees Fahrenheit, heart rate 80 per minute, respiratory rate 16 per minute, blood pressure 108/53 mmHg, oxygen saturation 97% on room air. INTAKE AND OUTPUT: Records are negative by about 1400 mL. HEAD: Atraumatic. NECK: Neck veins are still quite full and prominent. HEART SOUNDS: Regular. LUNGS: With diminished breath sounds. ABDOMEN: Soft and nontender. EXTREMITIES: Without any cyanosis or clubbing. She has a right femoral vein dialysis catheter which is currently used for CRRT. Lower extremity edema is still 2+. LABORATORY DATA: Today's labs show WBC 13.4, hemoglobin 9.7, hematocrit 30%, platelets 36,000. Sodium 141, potassium 3.9, CO2 24, BUN 23, creatinine 1.1, calcium 8.2. PROBLEMS: 1. Oliguric acute renal failure. Patient remains on continuous renal replacement therapy (CRRT). She has slightly improved urine output, but not adequate to consider stopping CRRT at present. Blood pressure is also soft, so I will continue with CRRT and not consider switching her to intermittent dialysis at present. 2. Septic shock. Blood pressure slightly improved. She did grow Escherichia (E) coli in her urine and Staphylococcus in her blood culture. She remains on ceftriaxone and vancomycin. 3. Generalized hypovolemia. Patient was given a large amount of intravenous (IV) fluids initially when she was hypotensive. Now her blood pressure has improved and we are trying to remove fluid with CRRT. I am increasing the fluid removal to 75 mL per hour as tolerated. She is not likely to respond to diuretics at present. 4. Anemia. At present, her anemia is stable and does not need any urgent intervention. 5. Nutrition. Patient does not have any nutrition so far. I would recommend to consider nasogastric (NG) tube for feeding, if that is an option. Twenty-six minutes of critical care time spent during which no procedures were performed. Her CRRT orders are renewed.
[2021-04-18] MEDS ORDERED: SODIUM CHLORIDE 0.9% INJ 10 ML SYR IV PRN (15:30)
--- NOTE | 2021-04-18 16:25 | REP ---
INDICATION: poor access. COMPARISON: None. TECHNIQUE: The procedure was performed under the direct supervision of Dr. Garcia. The risks and benefits of the procedure were explained and informed consent was obtained by the healthcare proxy. The procedure was performed in the ICU at the bedside. The right basilic vein was localized using ultrasound guidance. The skin was prepped and draped in a sterile fashion. 1 mL of 1% lidocaine was used as a local anesthetic. Using ultrasound guidance the basilic vein was cannulated and a 0.018 guidewire was inserted. The needle was removed and a 5 Salvadorean dilator and peel-away sheath was inserted over the guide wire. A 5 Salvadorean dual lumen catheter was cut to length of 40 cm. The dilator was removed and the catheter was inserted over the guide wire. A portable chest x-ray was performed and the image demonstrates the tip of the catheter to be in the SVC. The peel-away sheath was removed and the catheter was flushed with heparinized saline as per Hospital protocol. The catheter was affixed to the skin and a sterile dressing was applied. Estimated blood loss: Less than 1 mL The patient tolerated the procedure well and there were no immediate complications. FINDINGS: None IMPRESSION: PICC line insertion right basilic vein with the tip ending in the SVC. <Electronically signed by Marlo Pichardo > 04/18/21 1621 <Electronically signed by Chase Garcia > 04/18/21 1621
[2021-04-18 17:31] LABS: HEMATOCRIT 29.2 % (36.0-47.0); HEMOGLOBIN 9.4 g/dl (12.0-15.5); MEAN CORPUSCULAR HEMOGLOBIN 30.5 pg (27.0-33.0); MEAN CORPUSCULAR HGB CONC 32.2 g/dl (32.0-36.5); MEAN CORPUSCULAR VOLUME 94.8 fl (80.0-96.0); RED BLOOD COUNT 3.08 10^6/uL (4.00-5.40); WHITE BLOOD COUNT 11.2 10^3/uL (4.0-10.0)
[2021-04-18 17:47] LABS: PLATELET COUNT, AUTOMATED 35 10^3/uL (150-450)
[2021-04-18 17:59] LABS: CREATININE FOR GFR 0.99 MG/DL (0.55-1.30); GLOMERULAR FILTRATION RATE 57.5 (>32); MAGNESIUM LEVEL 2.2 MG/DL (1.8-2.4); PHOSPHORUS LEVEL 2.3 MG/DL (2.5-4.9)
[2021-04-18] MEDS: SODIUM CHLORIDE 0.9% INJ 10 ML SYR IV SCH (18:00)
[2021-04-18] MEDS ORDERED: POTASSIUM PHOSPHATE INJ 15 MMOL in D5W 250 ML IV ONE (20:00)
[2021-04-19] VITALS (23 sets, daily range): BP systolic 102–175; BP diastolic 44–74; O2SAT 83–100
[2021-04-19 00:10] LABS: HEMATOCRIT 28.9 % (36.0-47.0); HEMOGLOBIN 9.6 g/dl (12.0-15.5); MEAN CORPUSCULAR HEMOGLOBIN 31.3 pg (27.0-33.0); MEAN CORPUSCULAR HGB CONC 33.2 g/dl (32.0-36.5); MEAN CORPUSCULAR VOLUME 94.1 fl (80.0-96.0); RED BLOOD COUNT 3.07 10^6/uL (4.00-5.40); WHITE BLOOD COUNT 11.5 10^3/uL (4.0-10.0)
[2021-04-19 00:12] LABS: PLATELET COUNT, AUTOMATED 33 10^3/uL (150-450)
[2021-04-19] MEDS ORDERED: CALCIUM GLUCONATE 1,000 MG in NS MINI-BAG PLUS 100 ML IV ONE ×2 (01:00→06:00)
[2021-04-19 01:16] LABS: CALCIUM LEVEL 7.7 MG/DL (8.8-10.2); CREATININE FOR GFR 1.04 MG/DL (0.55-1.30); GLOMERULAR FILTRATION RATE 54.3 (>32); MAGNESIUM LEVEL 2.1 MG/DL (1.8-2.4); PHOSPHORUS LEVEL 3.2 MG/DL (2.5-4.9); POTASSIUM SERUM 4.3 MEQ/L (3.5-5.1)
[2021-04-19] MEDS: HYDROMORPHONE HCL 0.5 MG/ 0.5 ML SYRINGE (J1170 PER 1) IV PRN ×4 (03:56→23:46)
[2021-04-19 05:23] LABS: HEMATOCRIT 29.8 % (36.0-47.0); HEMOGLOBIN 9.5 g/dl (12.0-15.5); MEAN CORPUSCULAR HEMOGLOBIN 30.2 pg (27.0-33.0); MEAN CORPUSCULAR HGB CONC 31.9 g/dl (32.0-36.5); MEAN CORPUSCULAR VOLUME 94.6 fl (80.0-96.0); RED BLOOD COUNT 3.15 10^6/uL (4.00-5.40); WHITE BLOOD COUNT 11.1 10^3/uL (4.0-10.0)
[2021-04-19 05:26] LABS: PLATELET COUNT, AUTOMATED 31 10^3/uL (150-450)
[2021-04-19 05:40] LABS: ALBUMIN 1.6 GM/DL (3.2-5.2); BILIRUBIN,TOTAL 1.8 MG/DL (0.2-1.0); CALCIUM LEVEL 8.2 MG/DL (8.8-10.2); CREATININE FOR GFR 1.01 MG/DL (0.55-1.30); GLOMERULAR FILTRATION RATE 56.1 (>32); PHOSPHORUS LEVEL 2.8 MG/DL (2.5-4.9); POTASSIUM SERUM 4.2 MEQ/L (3.5-5.1); TOTAL PROTEIN 6.3 GM/DL (6.4-8.2)
[2021-04-19 05:44] LABS: BASOPHILS 1 % (0-1); EOSINOPHILS 3 % (0-3); LYMPHOCYTES 15 % (16-44); MONOCYTES 3 % (0-5); NEUTROPHILS 78 % (28-66)
[2021-04-19 05:45] LABS: ANISOCYTOSIS 1+; PLATELET ESTIMATE MARKED DECREASE (NORMAL)
[2021-04-19 05:46] LABS: POLYCHROMASIA 1+
[2021-04-19 05:47] LABS: SMUDGE CELLS 1+
[2021-04-19] MEDS: HumaLOG INSULIN (NovoLOG) PER UNIT SC SCH ×4 (05:47→19:23)
[2021-04-19] MEDS: LEVOTHYROXINE 100MCG (0.1MG) VIAL IV SCH (05:48)
[2021-04-19] MEDS: SODIUM CHLORIDE 0.9% INJ 10 ML SYR IV SCH ×2 (05:48→20:16)
[2021-04-19] MEDS: DOCUSATE SODIUM 100MG CAPSULE PO SCH ×2 (07:53→20:18)
[2021-04-19] MEDS: ATORVASTATIN 20 MG TAB NG SCH (09:00)
--- NOTE | 2021-04-19 12:32 | REPVR ---
PROCEDURE INFORMATION: Exam: CT Head Without Contrast Exam date and time: 04/19/2021 12:07 PM Age: 80 years old Clinical indication: Altered mental status/memory loss; Additional info: AMS TECHNIQUE: Imaging protocol: Computed tomography of the head without contrast. Radiation optimization: All CT scans at this facility use at least one of these dose optimization techniques: automated exposure control; mA and/or kV adjustment per patient size (includes targeted exams where dose is matched to clinical indication); or iterative reconstruction. COMPARISON: CT Head without contrast 04/15/2021 2:35 PM FINDINGS: Brain: Small wedge-shaped areas of hypoattenuation within the bilateral cerebellar hemispheres, superiorly on the left and inferiorly on the right. Small band of hypoattenuation in the right frontal white matter. There is otherwise mild generalized cerebral volume loss and mild patchy white matter hypoattenuation, commonly secondary to chronic small vessel ischemic change. Mild intracranial atherosclerosis. No acute ischemic infarction. No acute intracranial hemorrhage. Cerebral ventricles: No ventriculomegaly. Paranasal sinuses: Visualized sinuses are unremarkable. No fluid levels. Mastoid air cells: Visualized mastoid air cells are well aerated. Bones/joints: No acute fracture. Soft tissues: Unremarkable. IMPRESSION: Small bilateral cerebellar infarctions, which appear either subacute or chronic although are new from the 07/06/2019 CT comparison. MRI could be considered for further evaluation. Electronically signed by: Niranjan Vu On 04/19/2021 12:32:38 PM
[2021-04-19] MEDS: cefTRIAXone SOD 2 GM in D5W MINI-BAG PLUS 50 ML IV SCH ×2 (12:50→22:46)
--- NOTE | 2021-04-19 16:32 | IPNPDOC ---
Text Note Date of Service The patient was seen on 04/19/21. NOTE SUBJECTIVE: Patient is seen and examined this morning at bedside. She remains lethargic and is responsive only to painful stimuli. She has remained hypothermic overnight requiring the bear hugger to maintain her temperature. She continues on CRRT this morning. OBJECTIVE: VITAL SIGNS: See below GENERAL: Lying in bed, unresponsive to verbal stimuli. Does respond to painful stimuli. She does moan out at times which does not appear to be directed. HEENT: Normocephalic, atraumatic. she does open her eyes and gaze left forward, pupils are fixed and do not respond to light. Moist mucous membranes NECK: Supple, trachea midline, no lymphadenopathy CARDIOVASCULAR: Regular rate and rhythm, normal S1 and S2. RESPIRATORY: Breath sounds are difficult to auscultate likely due to body habitus and shallow breathing, no adventitious breath sounds appreciated ABDOMEN: Obese, soft, nontender, nondistended, bowel sounds present. EXTREMITIES: 2+ edema bilateral lower extremities. NEUROLOGIC: GSC score of seven this morning, she withdraws from pain, makes incomprehensible sounds, opens eyes to pain. Patient does not follow commands. ASSESSMENT/PLAN: 80-year-old female with past medical history of hypothyroidism, diabetes, hypertension, and rheumatoid arthritis who initially presented to the emergency room after being found on the floor of her bathroom admitted to the hospital with hypothermia, hypotension, and hypoglycemia found to have E. coli UTI and staph lugdunensis bacteremia now on IV ceftriaxone. Patient has also developed FLAKITA which has progressed to renal failure requiring dialysis. Patient has also been diagnosed with bilateral cerebellar infarcts which may be subacute and is undergoing further work-up. Concern for septic emboli raises concern for en docarditis involved with the bacteremia. 1. Cardiovascular #Atrial fibrillation with RVR, resolved, currently in sinus rhythm Presumably new onset on admission, patient status post IV digoxin We will avoid anticoagulation given her thrombocytopenia #Rhabdomyolysis, resolved Elevated CK on admission which has trended down with IV fluids #Elevated troponin on admission No ischemic changes on EKG at admission Initially trended up and repeat EKG did not show any ischemic changes Troponin has now stabilized, etiology is most likely demand ischemia 2. Pulmonary #Tachypnea, resolved - Most likely caused by compensatory response to metabolic acidosis from lactic acidosis. Patient's respiratory rate was in the high 10s today which is improvement from yesterday when it was in the high 20s. - CXR was negative for any lung pathology, although does show some early signs of fluid congestion likely from IV fluid administration. The patient's breathing today appears normal and she is saturating well on room air 3. GI/Nutrition #Elevated liver enzymes, improved Likely related to prolonged hypotension Trend labs daily #Nutrition Will insert NG tube today to start on tube feeding We will start on Nepro and titrate up to 60 mL/h 4. ID #Septic shock secondary to staph lugdunensis bacteremia Initially hypotensive which has stabilized, patient received over 8 L of fluids and is now requiring fluid removal via dialysis Lactic acidosis has trended down PICC line has been placed for better peripheral access Blood cultures x2 positive, repeat blood cultures x2 positive again, third set of blood cultures pending Patient also had urine culture positive for E. coli Continue antibiotic coverage with ceftriaxone day #4 (status post Zosyn-->ampicillin and vancomycin) Given there is some concern that she could have septic emboli, we have ordered MRI of the cervical, thoracic, and lumbar spines. We would also consider further evaluation of the heart with ANDER if she is stable enough to tolerate this #UTI Urine culture positive for E. coli Antibiotic coverage as above #Possible endocarditis Patient is on appropriate antibiotic coverage for her bacteremia. Her TTE was of poor technical quality. We may consider ANDER to rule out endocarditis, especially given the new diagnosis of cerebellar infarction #Possible meningitis Given her presentation with bacteremia, nuchal rigidity and altered mental status, meningitis was elicited as a possible etiology Currently she is not a good candidate for an LP. We will continue antibiotic coverage as above Given her altered mental status has not improved much with antibiotic coverage and she has now been shown to have strokes, there are more likely differentials to explain the patient's current altered mental status 5. Renal #Acute renal failure with oliguria Nephrology consulted, appreciate recommendations and management of dialysis Patient has been receiving CRRT at bedside. Plan per nephrology is to stop this this evening and consider HD moving forward if her renal function does not improve Patient continues to have poor urine output, although this could be contributed to by the CRRT 6. Neurologic #Subacute versus chronic bilateral cerebellar infarcts Initial CT head on admission was negative but has significant motion artifacts Repeat head CT ordered today due to persistent altered mental status despite treatment of infection This showed bilateral cerebellar infarcts which are new at least from 2019 Patient started on atorvastatin 80 mg daily via NG tube We will hold off on starting aspirin or Plavix at this time given her thrombocytopenia Ordered MRI brain, MRA brain, carotid artery ultrasound for further work-up. Patient has already had TTE and has been on telemetry for rhythm monitoring. We do know she had had some atrial fibrillation on admission which could contribute to the strokes. Given her TTE was of poor technical quality may consider ANDER for further evaluation for source of septic emboli Neurology/Dr. Fitch consulted, appreciate recommendations 7. Heme #Thrombocytopenia Most likely related to the patient's sepsis. At this point her platelet count seems to have stabilized. We will continue to monitor Consider transfusion for platelets less than 10,000 or if she starts bleeding with platelets less than 50,000. 8. Endocrine #Hypothyroidism Currently receiving IV levothyroxine for replacement at 50% of her home oral do se TSH elevated on admission, likely sick euthyroid syndrome #Hypoglycemia on admission, resolved Monitor FSBS every 6 hours Hypoglycemic protocol DVT prophylaxis: Teds and SCDs, hold on medical prophylaxis due to thrombocytopenia CODE STATUS: DNR/DNI Disposition: Pending clinical improvement, overall prognosis remains guarded. We had a meeting today with the patient's son and daughter again to discuss the patient's condition and the plan moving forward. The family would like continue with treatment and testing regarding the conditions discussed above. They expressed understanding of the critical state of her health. VS,Fishbone, I+O VS, Fishbone, I+O Laboratory Tests 04/18/21 17:14 04/19/21 00:01 04/19/21 05:07 Vital Signs Date Time Temp Pulse Resp B/P (MAP) Pulse Ox O2 Delivery O2 Flow Rate FiO2 04/19/21 14:30 96.4 04/19/21 14:00 83 21 128/60 (82) 97 Room Air I&O- Last 24 Hours up to 6 AM 04/19/21 06:00 Intake Total 1947 ml Output Total 2544 ml Balance -597 ml GME ATTESTATION GME ATTESTATION My faculty preceptor for this patient encounter was physically present during the encounter and was fully available. All aspects of the patient interview, examination, medical decision making process, and medical care plan development were reviewed and approved by the faculty preceptor. The faculty preceptor is aware and concurs with the plan as stated in the body of this note and will attest to such by his/her cosignature. ATTENDING NOTE I personally examined the patient, discussed her clinical progression, findings on labs and imaging and management with the resident team. I agree with the above summary and outlined medical management. We spoke with her family about the new development of the findings of the cerebellar infarcts and how this changes her prognosis quite drastically now beyond treatment of the infection as well as the ongoing renal failure. In brief, Ms. Mcneil continues to be unresponsive, has a fixed left gaze, moans with presumed discomfort and has movements that do not appear purposeful. She is also anuric at this time and plan per nephrology is to end CRRT this evening as which point they trial diuretics if stable. Given the new stroke findings, we have consulted Dr. Fitch who recommended stat MRI/MRA that is pending. We will also try to get MRI of the total spine for seeding studies at the same time if tolerated. For now, the family would like to continue with full treatment and we will be in close contact with more discussions as we find out more about extent of stroke. CUAUHTEMOC WILLIAM D.O. Apr 19, 2021 16:30 CROW MAHONEY MD Apr 20, 2021 10:09
--- NOTE | 2021-04-19 17:01 | REP ---
INDICATION: s/p ng tube insertion. COMPARISON: Portable chest dated 04/16/2021. TECHNIQUE: Portable AP chest with the patient upright. FINDINGS: The lung apices are excluded at the upper film margin. There has been interval placement of a nasogastric tube. The nasogastric tube tip is in satisfactory location in the abdominal left upper quadrant. Diffuse bilateral interstitial coarsening is again noted, not significantly changed. Cardiac size is normal. IMPRESSION: The NG tube tip is in the abdominal left upper quadrant in satisfactory position. There is diffuse bilateral interstitial coarsening, unchanged. The lung apices are excluded at the superior film margin. <Electronically signed by Chase Salazar > 04/19/21 [id number]
[2021-04-19] MEDS ORDERED: LORazepam 2 MG/ML VIAL IV STA (18:31)
--- NOTE | 2021-04-19 19:05 | REPVR ---
PROCEDURE INFORMATION: Exam: MR Head Without Contrast Exam date and time: 04/19/2021 6:56 PM Age: 80 years old Clinical indication: Abnormal findings; Abnormal radiologic findings of head/skull; Ischemia; Additional info: Bilat cerebellar infarcts TECHNIQUE: Imaging protocol: MR of the head without contrast. COMPARISON: CT Head without contrast 04/19/2021 12:05 PM FINDINGS: Examination is markedly motion limited. Age-related volume loss. Major vascular flow voids at the skull base are grossly preserved. No gross extra-axial fluid collection. Nonspecific white matter gliosis, probable chronic microvascular ischemia. There are interval foci of diffusion restriction involving the bilateral cerebellar hemispheres, brainstem and bilateral cerebral hemispheres. Dominant focus at the right cerebellum measures up to 2.6 cm. There is associated T2 prolongation. Mild paranasal sinus disease. Small to moderate bilateral mastoid effusions. IMPRESSION: 1. Examination is markedly motion limited. 2. There are numerous likely early subacute ischemic infarctions involving the bilateral anterior and posterior circulation. Consider cardiogenic emboli. Electronically signed by: Mando Madrid On 04/19/2021 19:04:32 PM
--- NOTE | 2021-04-19 19:06 | REPVR ---
PROCEDURE INFORMATION: Exam: MRA Head Without Contrast; Arteriography Exam date and time: 04/19/2021 6:56 PM Age: 80 years old Clinical indication: Cognitive deficit and other: Found unresponsive; Altered mental status; Additional info: Bilat cerebellar infarcts TECHNIQUE: Imaging protocol: Magnetic resonance angiography head without contrast. Exam focused on the arteries. COMPARISON: CT Head without contrast 04/19/2021 12:05 PM FINDINGS: Examination is markedly motion limited. No gross occlusion involving the vertebral arteries or basilar artery. No occlusion involving the internal carotid arteries. No gross proximal occlusion involving the middle cerebral or anterior cerebral arteries. Stenosis is not excluded. Aneurysm cannot be reliably excluded. IMPRESSION: 1. Examination is markedly motion limited. 2. No gross proximal large vessel occlusion to the limited degree visualized. Electronically signed by: Mando Madrid On 04/19/2021 19:06:01 PM
[2021-04-19] MEDS ORDERED: FUROSEMIDE 100MG/10ML VIAL (J1940) IV ONE (19:30)
[2021-04-19] MEDS ORDERED: VANCOMYCIN HCL 1,000 MG, VIAL MATE ADAPTER 1 EACH in NS 250 ML IV SCH (20:05)
--- NOTE | 2021-04-19 21:03 | CR ---
CONSULTATION DATE: 04/19/2021 REFERRING PHYSICIAN: Hamida Patterson MD REASON FOR CONSULTATION: Stroke and altered mental status. HISTORY OF PRESENT ILLNESS: April Mcneil is an 80-year-old woman who was admitted at [facility] on April 15, 2021. The patient is unable to provide any history. According to admission notes, was found on the floor by her neighbor. The patient did not remember how she ended up in the hospital. She was suspected to be on the floor for more than 24 hours. EMS brought her to [facility]. She was hypothermic with temperature 91, hypoglycemic with blood sugar 31. She was hypotensive with lactic acid 4.1 and troponin 3.8. Her white count was high, 16.3. Urinalysis was positive for infection and she was suspected to have sepsis due to urinary tract infection. She has been in intensive care unit and on antibiotics. She developed renal failure requiring CAR KNOCKER. CT scan of the head initially at [facility] was unremarkable and was also affected by motion artifact. She had a repeat CT scan of head today which showed small left cerebellar ischemic strokes reportedly. I reviewed the scan and suspected that she had a large stroke in left cerebellum and it may by extending into her brainstem. I recommended stat MRI scan of brain which was done and I reviewed it and showed large right cerebellar multiple pontine, mid-brain, left cerebellar, multiple frontal, occipital, parietal, deep cerebral white matter strokes bilaterally which are too numerous to count. MRA, brain was affected by motion artifact. When I saw patient this evening, patient is unresponsive and is unable to provide any meaningful history. There are no reports of fever, headaches, neck, back pain or loss of consciousness or seizures. REVIEW OF SYSTEMS: Could not be obtained. PAST MEDICAL HISTORY: Could not be obtained. SOCIAL HISTORY: Could not be obtained. FAMILY HISTORY: Could not be obtained. HOME MEDICATIONS: 1. Humira 40 mg q.2 weeks. 2. Atenolol 25 mg p.o. daily. 3. Vitamin B12 500 mcg p.o. daily. 4. Cymbalta 90 mg p.o. daily. 5. Insulin Tresiba 80 units subcutaneous daily. 6. Irbesartan 150 mg p.o. daily. 7. Levothyroxine 125 mcg p.o. daily. 8. Crestor 20 mg p.o. daily. 9. Januvia 50 mg p.o. daily. 10. Insulin NovoLog sliding scale. ALLERGIES: None. PHYSICAL EXAMINATION: VITAL SIGNS: The patient has been afebrile since admission. Current temperature 97, blood pressure 175/74, 96% saturation on room air, pulse 96. HEART: Regular rate and rhythm. LUNGS: Distant sounds with mild crackles. EXTREMITIES: She has edema of her hands and feet. ABDOMEN: Soft, nontender, nondistended. NEUROLOGICAL: Patient is lying in bed moaning. She does not follow any commands. Her eyes are open. She does not track any objects with her eyes. No clear nystagmus. Sensory, cerebellar, gait and motor and sensory could not be performed. The patient withdraws her left leg to pain. She does not withdraw her arms or right foot. Plantars are upgoing bilaterally. Deep tendon reflexes could not be obtained. ASSESSMENT: 1. Too numerous to count bilateral ischemic strokes affecting cerebellum, marely, mid-brain, frontal, parietal, occipital lobes and deep cerebral white matter. 2. Suspected septic emboli. 3. Acute renal insufficiency requiring CAR KNOCKER and liver dysfunction. 4. Concern for thrombotic thrombocytopenic purpura. PLAN: 1. I discussed patient's current situation with Dr. Crockett who will discuss with patient's family. 2. Her overall prognosis is guarded poor with two many and too numerous strokes bilaterally. 3. Anticoagulation will have no effect on her current state and strokes and will increase risk of bleeding. Her platelet count is low, 31,000 and I do not believe currently giving aspirin will change her outcome. LABORATORY STUDIES: WBC is 11.1, platelet 31,000, hemoglobin 9.5 with RBCs of different shapes as documented in her blood smear. Her creatinine on admission was 1.7 which went up to 2.5 and now decreased to 1.01 with CAR KNOCKER. Her AST was 159 on admission with normal ALT. Total bilirubin was 2.9 on admission.
[2021-04-19] MEDS ORDERED: VANCOMYCIN HCL 750 MG, VIAL MATE ADAPTER 1 EACH in NS 250 ML IV ONE ×2 (22:00→23:00)
--- NOTE | 2021-04-19 22:26 | IPN ---
NEPHROLOGY PROGRESS NOTE DATE: 04/19/2021 SUBJECTIVE: Patient was seen and examined at the bedside today morning in the ICU. She continues to be on CVVHDF. Patient was moaning. She was unable to provide me with any review of systems. She remains oliguric. There is no improvement in the renal function. Her urine output total is hardly 5 cc. She is currently not requiring any pressors in view of actually able to remove fluids during CVVHDF. OBJECTIVE: VITAL SIGNS: Temperature 96.6 degrees Fahrenheit, blood pressure 130/56, pulse 87, respiratory rate 16, saturating 98% on room air. INTAKE/OUTPUT: Urine output recorded as 160 mL the whole day yesterday. Ultrafiltration with CVVHDF was 3,062 mL yesterday and 1,134 mL by the time I saw her in the morning. Weight in the bed scale is 116.1 kg. PHYSICAL EXAMINATION: GENERAL: Patient is lying in bed, getting CVVHDF, eyes are half closed. She is moaning. HEAD/NECK: Patient's eyes are rolled up. Mucous membranes are dry. Neck is supple. No significant JVD. CVS: S1, S2. Patient has anasarca. She has 2+ edema of the bilateral lower and upper extremities. RESPIRATORY: Mildly decreased breath sounds at the bases, otherwise no active rales or rhonchi. ABDOMEN: Soft, positive bowel sounds, nontender. Abdominal wall edema is noted. GENITOURINARY: She has an indwelling Lora catheter, a small amount of urine in the bag is noted. MUSCULOSKELETAL: She has significant edema and anasarca of the extremities. VOCATIONAL TRAINING INSTRUCTOR: Patient does not follow commands and she is moaning at this time. She is not sedated. LABORATORY REVIEW: CBC showed WBC 11.1, hemoglobin 9.5, platelets 31,000. BMP shows sodium 138, potassium 4.2, chloride 108, bicarb 25, BUN 18, creatinine 1.01. Total bilirubin 1.8. Albumin 1.6. MICROBIOLOGY: Blood cultures from April 16 are positive Staphylococcus lugdunensisis and urine cultures were positive for E. Coli. IMAGING: CT of the head was done today in the afternoon, which showed small bilateral cerebral infarcts, which appear subacute. Later on, she was taken for MRI of the brain, which was motion limited, there were numerous likely early subacute ischemic infarcts involving the bilateral anterior and posterior circulation. They can be cardiogenic emboli. MRA of the head without contrast was also done, which showed no gross proximal large vessel occlusion. CURRENT INPATIENT MEDICATIONS: Patient's medications were all reviewed by myself. She continues to be on I.V. Rocephin. Pressors are on hold. I gave her a dose of Lasix 80 mg I.V. x1 dose. No other significant change in the medications. ASSESSMENT AND PLAN: 1. Acute oliguric renal failure: Patient is on CVVHDF, however, her blood pressures are controlled now. CVVHDF will be stopped at the end of the day. I will try to diurese the patient with Lasix and if needed she will be given bedside intermittent hemodialysis. 2. Anasarca: We are removing fluid during hemodialysis. I would start the patient on regular Lasix injections as well. Further fluid removal will be done with dialysis. 3. Multiple strokes on MRI: Patient most likely has septic emboli. She has Staph lugdunensisis bacteremia. I.V. antibiotics are being managed by the medical team. 4. Protein calorie malnutrition: Patient will get NGT placed today and will start tube feeds and Nepro. DISPOSITION: Patient overall has poor prognosis. She has sepsis secondary to bacteremia. She is throwing septic emboli into the brain. She has multiple CVAs, acute oliguric renal failure. Overall she has a poor prognosis and medical team is going to discuss the course of care with the family members. TOTAL CRITICAL CARE TIME: Spent in the management of this patient today morning in the ICU, excluding all the procedures, was [address] [facility]
--- NOTE | 2021-04-19 23:34 | IPNPDOC ---
Date Seen The patient was seen on 04/19/21. Progress Note Called by Vrad to inform me of MRI finding from 04/19/21, showing ~50+ embolic infarcts involving the bilateral anterior and posterior circulation. This is consistent with ongoing management of IE. I discussed findings with Dr. Fitch, agrees no further intervention at this time. ASA will not change outcome, and starting anticoagulation is contraindicated in light of thrombocytopenia. Agrees with poor prognosis. I spoke to the patient's children Darek and Sarah at bedside regarding grave prognosis, in view of her sepsis and innumerable ischemic infarctions, along with renal failure requireing CRRT (which is now held). While Darek agrees with comfort measures, Sarah is requesting ongoing medical management including IV antibiotics and CRRT. At this time we will continue with active medical management, including tube feedings. VS, I&O, 24H, Fishbone Vital Signs/I&O Vital Signs Date Time Temp Pulse Resp B/P (MAP) Pulse Ox O2 Delivery O2 Flow Rate FiO2 04/19/21 22:46 16 04/19/21 22:00 100 Room Air 04/19/21 20:00 97.0 89 157/56 (89) I&O- Last 24 Hours up to 6 AM 04/19/21 06:00 Intake Total 1947 ml Output Total 2544 ml Balance -597 ml Laboratory Data 24H LABS Laboratory Tests 2 04/19/21 00:01: Nucleated Red Blood Cells % (auto) 0.2H, Immature Platelet Fraction 6.1, Anion Gap 4L, Glomerular Filtration Rate 54.3, Calcium Level 7.7L, Whole Blood Ionized Calcium 4.4L, Phosphorus Level 3.2#, Magnesium Level 2.1 04/19/21 05:07: Nucleated Red Blood Cells % (auto) 0.2H, Anion Gap 5L, Glomerular Filtration Rate 56.1, Calcium Level 8.2L, Whole Blood Ionized Calcium 4.6, Phosphorus Level 2.8, Magnesium Level 2.0, Immature Granulocyte % (Auto) , Neutrophils (%) (Auto) , Neutrophils 78H, Lymphocytes (Manual) 15L, Monocytes (Manual) 3, Eosinophils (Manual) 3, Basophils (Manual) 1, Polychromasia 1+, Anisocytosis 1+, Smudge Cells 1+, Platelet Estimate MARKED DECREASE, Total Bilirubin 1.8H, Aspartate Amino Transf (AST/SGOT) 73H, Alanine Aminotransferase (ALT/SGPT) 49, Alkaline Phosphatase 79, Total Protein 6.3L, Albumin 1.6L, Albumin/Globulin Ratio 0.3L 04/19/21 12:51: Bedside Glucose (Misc Panel) 83 04/19/21 19:17: Bedside Glucose (Misc Panel) 78L CBC/BMP Laboratory Tests 04/19/21 00:01 04/19/21 05:07 Microbiology Microbiology 04/18/21 Blood Culture - Preliminary, Resulted No growth after 24 hours . All specim... 04/18/21 Blood Culture - Preliminary, Resulted No growth after 24 hours . All specim... 04/17/21 Blood Culture - Preliminary, Resulted 04/17/21 Blood Culture - Preliminary, Resulted 04/16/21 Blood Culture - Final, Complete Staphylococcus Lugdunensis 04/15/21 Urine Culture - Final, Complete Escherichia Coli 04/15/21 Blood Culture - Final, Complete Staphylococcus Lugdunensis 04/15/21 Blood Culture - Final, Complete Staphylococcus Lugdunensis STEPHANIE AGUERO MD Apr 19, 2021 23:34
[2021-04-20] VITALS (7 sets, daily range): BP systolic 96–157; BP diastolic 47–56; O2SAT 96–99
[2021-04-20] MEDS: HumaLOG INSULIN (NovoLOG) PER UNIT SC SCH ×3 (05:04→11:57)
[2021-04-20] MEDS: SODIUM CHLORIDE 0.9% INJ 10 ML SYR IV SCH (05:06)
[2021-04-20] MEDS: LEVOTHYROXINE 100MCG (0.1MG) VIAL IV SCH (05:06)
[2021-04-20 05:28] LABS: HEMATOCRIT 30.2 % (36.0-47.0); HEMOGLOBIN 9.6 g/dl (12.0-15.5); MEAN CORPUSCULAR HEMOGLOBIN 30.4 pg (27.0-33.0); MEAN CORPUSCULAR HGB CONC 31.8 g/dl (32.0-36.5); MEAN CORPUSCULAR VOLUME 95.6 fl (80.0-96.0); RED BLOOD COUNT 3.16 10^6/uL (4.00-5.40); WHITE BLOOD COUNT 20.4 10^3/uL (4.0-10.0)
[2021-04-20 05:31] LABS: PLATELET COUNT, AUTOMATED 31 10^3/uL (150-450)
[2021-04-20 06:04] LABS: BILIRUBIN,TOTAL 2.4 MG/DL (0.2-1.0); CALCIUM LEVEL 7.8 MG/DL (8.8-10.2); CREATININE FOR GFR 1.58 MG/DL (0.55-1.30); GLOMERULAR FILTRATION RATE 33.5 (>32); MAGNESIUM LEVEL 2.2 MG/DL (1.8-2.4); POTASSIUM SERUM 4.8 MEQ/L (3.5-5.1)
[2021-04-20 06:19] LABS: EOSINOPHILS 1 % (0-3); LYMPHOCYTES 6 % (16-44); METAMYELOCYTES 1 % (0-0); MONOCYTES 1 % (0-5); NEUTROPHILS 88 % (28-66)
[2021-04-20 06:21] LABS: ANISOCYTOSIS 1+; POLYCHROMASIA 1+
[2021-04-20 06:22] LABS: OVALOCYTES 1+; PLATELET ESTIMATE MARKED DECREASE (NORMAL); SCHISTOCYTES 1+
[2021-04-20] MEDS: DOCUSATE SODIUM 100MG CAPSULE PO SCH (07:49)
[2021-04-20] MEDS: ATORVASTATIN 20 MG TAB NG SCH (08:51)
[2021-04-20] MEDS ORDERED: FLEET ENEMA PR PRN (09:20)
[2021-04-20] MEDS ORDERED: ONDANSETRON 4MG/2ML VIAL IV PRN (09:20)
[2021-04-20] MEDS: MORPHINE 2 MG/ML 1ML VIAL (J2270) IV PRN ×2 (09:40→12:17)
[2021-04-20] MEDS: LORazepam 2 MG/ML VIAL IV PRN ×2 (10:03→13:36)
[2021-04-20] MEDS ORDERED: MORPHINE 2 MG/ML 1ML VIAL (J2270) IV ONE (11:00)
--- NOTE | 2021-04-20 11:46 | IPNPDOC ---
Text Note Date of Service The patient was seen on 04/20/21. NOTE INTERIM EVENTS: -MRI brain showed numerous >50 multihemispheric infarcts c/w showering of emboli likely from a cardiac origin septic vs. embolic thrombi. -Patient was updated and as of last night had wanted to continue with medical management -Neurology was consulted yesterday AM and recommended stat MRI/MRA brain that showed the infarcts as noted above, and in light of such severe findings and thrombocytopenia, recommended GOC without ASA or anticoagulation. -Had NGT placed yesterday and had been placed on tube feeds. 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 I am therefore transitioning her to PREPRESS OPERATOR and de-escalating her care accordingly and will transfer her to the med/surg floor. MOLST was updated and witnessed by nursing and is in chart. SUBJECTIVE: -She remains lethargic and is responsive only to painful stimuli and has episodic moaning. OBJECTIVE: VITAL SIGNS: See below. BP is now borderline low. She is in Afib with normal rate. GENERAL:Critically ill appearing, unresponsive to verbal stimuli, responds to painful stimuli with episodic moaning. HEENT: Normocephalic, atraumatic. Continues to have left gazing, not tracking. Pupils are fixed and do not respond to light. Dry MM. NECK: Supple, trachea midline, no lymphadenopathy, has JVD to tragus of ear. CARDIOVASCULAR: Irregularly irregular, no noted murmurs, distant sounds. RESPIRATORY: Shallow breathing, no adventitious breath sounds with episodic transmitted upper airway sounds. ABDOMEN: Obese, soft, nontender, nondistended, hypoactive bowel sounds EXTREMITIES: 2+ edema bilateral lower extremities, 2+ edema in upper extremities as well. NEUROLOGIC: Continues to withdraw from pain, makes incomprehensible sounds, opens eyes to pain with fixed left gaze and pupils that are unresponsive to light. Not following commands. Labs Reviewed: WBC now 20.4 platelets 31 Cr 1.58 ASSESSMENT: 80-year-old W with a medical history significant for hypothyroidism, diabetes, hypertension, and rheumatoid arthritis who initially presented to the emergency room after being found on the floor of her bathroom for possibly >24h and admitted to ICU with septic shock with hypothermia, hypotension, and hypoglycemia found to have E. coli UTI and staph lugdunensis bacteremia s/p aggressive IVF and IV ceftriaxone with course c/b anuric FLAKITA s/p CRRT and multihemisphreric numerous non-hemorrhagic infarcts c/w with embolic stroke possibly 2/2 cardiac thrombi i/s/o Afib vs. septic emboli, with multifactorial encephalopathy i/s/o septic shock, extensive numerous CVA and renal failure who is now being transitioned to PREPRESS OPERATOR. 1. Cardiovascular #Atrial fibrillation with RVR: currently in Afib with a normal rate. Presumably new onset on admission, patient status post IV digoxin in ED. No anticoagulation was started given her presenting severe thrombocytopenia -had been on telemetry but now being transitioned to PREPRESS OPERATOR -Initial TTE showed normal EF and no significant valvular pathology was noted at the time #Rhabdomyolysis Elevated CK on admission which trended down with IV fluids #Elevated troponin on admission No ischemic changes on EKG with repeats also stable, however was in Afib, i nitial TTE did not show WMA or thrombus. Initially trended then stabilized, etiology at the time was deemed 2/2 demand ischemia #Multihemispheric embolic CVAs -Read as subacute, initial CT did not note them. i/s/o AFib without anticoagulation and also septic shock with persistent bacteremia possibly septic emboli -Neurology was consulted and appreciate recs, no ASA without much utility at this time and no anticoagulation with ongoing thrombocytopenia and CVA -Now transitioned to PREPRESS OPERATOR Initial CT head on admission was negative but had significant motion artifacts Repeat head CT showed bilateral cerebellar infarcts which are new at least from 2019 MRI brain showed multihemispheric non-hemorrhagic infarcts Encephalopathy: multifactorial -Metabolic i/s/o septic shock as well as multihemispheric numerous embolic non- hemorrhagic strokes #Tachypnea, resolved - Most likely caused by compensatory response to metabolic acidosis from lactic acidosis. - CXR was negative for any lung pathology, although with some signs of fluid congestion likely from aggressive IV fluid administration. #Transaminitis, improved Likely related to prolonged hypotension #Nutrition: had placed NGT and started tube feeds but will dc at this time as she is transitioned to PREPRESS OPERATOR. #Septic shock secondary to staph lugdunensis bacteremia and concurrent E.coli UTI Initially hypotensive which resolved, s/p > 8 L of fluids Lactic acidosis resolved Has persistent bacteremia since admission which almost confirmed seeding without source control. Will now discontinue antibiotic coverage as she is transitioned to PREPRESS OPERATOR. S/p ceftriaxone 5d (status post Zosyn, ampicillin and vancomycin) will abort the plan for MRI of the cervical, thoracic, and lumbar spine as well as ANDER at this time #UTI Urine culture positive for E. coli. DC'd ceftriaxone today as she was transitioned to PREPRESS OPERATOR. #Likely endocarditis -Initial TTE was of poor technical quality. -had considered ANDER but plan now aborted as she is transitioned to PREPRESS OPERATOR -DC'd abx as noted above. #Anuric acute renal failure Nephrology consulted, appreciate recommendations s/p CRRT #Thrombocytopenia Most likely related to the patient's sepsis as well as consumptive process with possible LV thrombus given embolic CVAs if not septic emboli #Hypothyroidism will dc synthroid at this time. # hypoglycemia at presentation: resolved CODE STATUS: now PREPRESS OPERATOR VS,Fishbone, I+O VS, Fishbone, I+O Laboratory Tests 04/20/21 05:14 Vital Signs Date Time Temp Pulse Resp B/P (MAP) Pulse Ox O2 Delivery O2 Flow Rate FiO2 04/20/21 06:00 96 Room Air 2.0 04/20/21 04:00 98.6 95 20 96/47 (63) I&O- Last 24 Hours up to 6 AM 04/20/21 06:00 Intake Total 1087.1 ml Output Total 954 ml Balance 133.1 ml CROW MAHONEY MD Apr 20, 2021 11:46
--- NOTE | 2021-04-20 17:47 | DS.PDOC ---
Discharge Summary General Date of Admission Apr 15, 2021 at 20:23 Date of Discharge 04/20/2021 Attending Physician: CROW MAHONEY MD Discharge Summary PROCEDURES PERFORMED DURING STAY: 1. Temporary dialysis catheter placement 2. PICC Line placement ADMITTING DIAGNOSES: Septic shock Encephalopathy New onset Afib FLAKITA Rhabdomyolysis DISCHARGE DIAGNOSES: Cardiac arrest 2/2 respiratory arrest i/s/o brainstem infarction i/s/o extensive embolic strokes, and possibly cardiovascular collapse i/s/o presumed chamber thrombi and MAHA. Septic shock 2/2 Staph lugdunesis bacteremia c/b presumed septic emboli and presumed infective endocarditis E.coli UTI New onset Afib c/b presumed LV thrombus c/b too numerous to count bilateral ischemic strokes affecting cerebellum, marely, mid-brain, frontal, parietal, occipital lobes and deep cerebral white matter. Suspected septic emboli Suspected infective endocarditis Too numerous to count bilateral ischemic strokes affecting cerebellum, marely, mid-brain, frontal, parietal, occipital lobes and deep cerebral white matter. 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 TTP) Anuric acute renal failure Rhabdomyolysis Hypoglycemia Hypocalcemia Type 2 NSTEMI DM Obesity Metabolic encephalopathy COMPLICATIONS/CHIEF COMPLAINT: Elevated Troponin,New Onset Afib,Septic Shock,. HISTORY OF PRESENT ILLNESS: History was obtained from emergency department staff as patient did not remember how she ended up in the hospital. The admitting physician noted that he was told that she was found on the floor by her neighbors suspected to have been on the ground for over 24 hours and EMS was called and she was brought to the ED. HOSPITAL COURSE On arrival she was hypothermic 91 Fahrenheit and hypoglycemic blood sugar was 31. She was hypotensive and had a lactic acidosis of 4.1, while her troponin was elevated to 3.8 and the ED contacted Dr. Saleh (bone cooking operator) and discussed the case and he suspected this was demand ischemia from acute illness and repeat troponin had gone down to 3.62. EKG was otherwise with ST segment changes but showed Afib which was presumed new onset at the time. She was not started on anticoagulation because in addition to a significant leukocytosis to 16.3, she was also thrombocytopenic with a platelet count of 72. Her urinalysis was positive and was suspected to have sepsis secondary to this urinary tract infection at that time. She was started on IV fluids with transient mentation improvement and she was awake enough to answer some basic questions and was oriented to herself, a hospital but had no idea what happened and how she ended up here and confirmed that she did not want resuscitation or intubation. She was too ill to go over her entire past medical history but was able verbalize that she is a diabetic. While in the ED, she had BCx, UA and reflex UCx sent and was started on empiric vancomycin and pip/tazo. She had a CXR that was grossly unremarkable without evidence of infiltrate or effusions and CT head that had significant motion defect without noted acute pathology or bleeding while a CT of the C-spine did not show an subluxation or fractures. She had persistent hypotension and was given aggressive IV fluids and there was a trial to place a TLC but she was dehydrated with a very collapsible IJ such that they deferred and decided to con tinue aggressive hydration and she received a total of >8L of NS with eventual response. She was admitted to the ICU for septic shock. On day 2 of admission, she was noted to have a decline in her mental status and her neck was very stiff. Given that she was previously healthy with very little contact with healthcare settings, I had very low suspicion of pseudomonas but was concerned about potential meningitis so I switched her to vanc/ceftriaxone/ampicillin. She had a TTE that was a poor study but noted a normal EF and no comment about an obvious valvular vegetation or chamber thrombus. By day 3, BCx grew GPCs in clusters while urine grew E.coli and she was continued on vanc/ceftriaxone. In the meantime, she had an anuric FLAKITA and nephrology had been consulted and started her on CRRT. Her neck stiffness improved and her neurological exam changed from being obtunded to FROM of neck but with episodic moaning and grimacing with movement of extremities that were not purposeful and could not follow commands. She also had fixed left gaze and was not tracking. Now that her shock had resolved and was off fluids and CRRT was able to remove some fluid and could safely leave the ICU for imaging, given her neurological examination, she had a repeat CT head that revealed bilateral cerebellar non-hemorrhagic infarcts. Neurology was consulted and on review of her CT scan, suspected that she had a large stroke in left cerebellum that may have been extending into her brainstem and recommended stat MRI scan of brain which was done which showed large right cerebellar multiple pontine, mid-brain, left cerebellar, multiple frontal, occipital, parietal, deep cerebral white matter strokes bilaterally which were too numerous to count. MRA, brain was affected by motion artifact. At this point there was high suspicion of embolic phenomena secondary to likely cardiac thrombi, likely LV thrombus, i/s/o likely DICvs. TTP precipitated by the septic shock, suspected septic emboli as she also had persistent bacteremia despite appropriate antibiotic therapy for days and resolution of initial shock and was in Afib without anticoagulation onboard. 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 DISCHARGE MEDICATIONS: Please see below. ALLERGIES: Please see below. PHYSICAL EXAMINATION ON DISCHARGE: LABORATORY DATA: Please see below. IMAGIN/3 CT C-spine: No evidence of acute fracture or dislocation.Degenerative changes as above. 04/15 CXR: Interstitial coarsening, somewhat increased from the comparison study. 04/15 CT head: Mild stable chronic findings. No acute intracranial abnormality. 04/15 L shoulder XR: There is no evidence of acute fracture, dislocation, or intrinsic bone disease.Humeral head is high riding with significant decreased subacromial space compatible with a rotator cuff tear. There are mild degenerative changes at the acromioclavicular joint. 04/15 CXR: Lungs: Ovoid density projects over the mid heart region may suggest presence of a granuloma. Additional granulomas in the left mid lung zone. Increased interstitial lung markings demonstrated bilaterally. No acute infiltrates. Prominent contour of the right pulmonary hilum may be related to a prominent vascular structure although a perihilar infiltrate or mass not excluded. Further evaluation with nonemergent thoracic CT may be of additional benefit. Pleural spaces: Unremarkable. No pleural effusion. No pneumothorax. Heart/Mediastinum: Cardiomegaly. Bones/joints: Osteoporosis. The spine demonstrates moderate degenerative changes. 04/15 AXR: Extremely limited examination because of patient body habitus. The gallbladder, pancreas, aorta and left kidney could not be visualized. The common biliary duct is dilated in a patient without cholecystectomy but normal size in a post cholecystectomy patient. The spleen is mildly enlarged. No free fluid is identified. 8/: Diffuse bilateral interstitial coarsening that has increased. No focal infiltrate or pleural effusion. Questionable new lung nodule projected above the left hemidiaphragm, over the heart, to the left of the spine as discussed above. 8/ Renal US: The study is extremely limited because of patient body habitus, edema and performed portably. Additionally, the patient is not alert and unable to suspend respirations or roll and turn and required. The right kidney measures 10.9 x 4.7 x 5.7 cm. The left kidney measures 9.4 x 4.7 x 5.7 cm. The kidneys are in the low normal size range. Renal cortical echogenicity is normal bilaterally. Mild hydronephrosis is suspected on the right.. The left kidney is extremely difficult to visualize. No definite hydronephrosis is identified on the left. A 6 mm calculus, nonobstructive, is identified in the left renal upper pole. No definite renal masses or cysts are identified, however, the kidneys are poorly visualized. Bladder: The bladder could not be visualized. IMPRESSION: Very limited study as discussed above. Question mild hydronephrosis on the right. Small left renal upper pole nonobstructive calculus. 04/[address]: Brain: Small wedge-shaped areas of hypoattenuation within the bilateral cerebellar hemispheres, superiorly on the left and inferiorly on the right. Small band of hypoattenuation in the right frontal white matter. There is otherwise mild generalized cerebral volume loss and mild patchy white matter hypoattenuation, commonly secondary to chronic small vessel ischemic change. Mild intracranial atherosclerosis. No acute ischemic infarction. No acute intracranial hemorrhage. Cerebral ventricles: No ventriculomegaly. Paranasal sinuses: Visualized sinuses are unremarkable. No fluid levels. Mastoid air cells: Visualized mastoid air cells are well aerated. Bones/joints: No acute fracture. Soft tissues: Unremarkable. IMPRESSION: Small bilateral cerebellar infarctions, which appear either subacute or chronic although are new from the 07/06/2019 CT comparison. MRI could be considered for further evaluation. 04/19 MRI brain: Examination is markedly motion limited. Age-related volume loss. Major vascular flow voids at the skull base are grossly preserved. No gross extra-axial fluid collection. Nonspecific white matter gliosis, probable chronic microvascular ischemia. There are interval foci of diffusion restriction involving the bilateral cerebellar hemispheres, brainstem and bilateral cerebral hemispheres. Dominant focus at the right cerebellum measures up to 2.6 cm. There is associated T2 prolongation. Mild paranasal sinus disease. Small to moderate bilateral mastoid effusions. IMPRESSION: 1. Examination is markedly motion limited. 2. There are numerous likely early subacute ischemic infarctions involving the bilateral anterior and posterior circulation. Consider cardiogenic emboli. 04/19 MRA brain: Examination is markedly motion limited. No gross occlusion involving the vertebral arteries or basilar artery. No occlusion involving the internal carotid arteries. No gross proximal occlusion involving the middle cerebral or anterior cerebral arteries. Stenosis is not excluded. Aneurysm cannot be reliably excluded. IMPRESSION: 1. Examination is markedly motion limited. 2. No gross proximal large vessel occlusion to the limited degree visualized. 04/19 CXR: The lung apices are excluded at the upper film margin. There has been interval placement of a nasogastric tube. The nasogastric tube tip is in satisfactory location in the abdominal left upper quadrant. Diffuse bilateral interstitial coarsening is again noted, not significantly changed. Cardiac size is normal. IMPRESSION: The NG tube tip is in the abdominal left upper quadrant in satisfactory position. There is diffuse bilateral interstitial coarsening, unchanged. The lung apices are excluded at the superior film margin. PROGNOSIS: ACTIVITY: DIET: DISCHARGE PLAN: DISPOSITION: DISCHARGE INSTRUCTIONS: ITEMS TO FOLLOWUP ON ON OUTPATIENT: DISCHARGE CONDITION: TIME SPENT ON DISCHARGE: 78 minutes. Vital Signs/I&Os Vital Signs Date Time Temp Pulse Resp B/P (MAP) Pulse Ox O2 Delivery O2 Flow Rate FiO2 04/20/21 06:00 96 Room Air 2.0 04/20/21 04:00 98.6 95 20 96/47 (63) I&O- Last 24 Hours up to 6 AM 04/20/21 06:00 Intake Total 1087.1 ml Output Total 954 ml Balance 133.1 ml Laboratory Data Labs 24H Laboratory Tests 2 04/19/21 19:17: Bedside Glucose (Misc Panel) 78L 04/20/21 00:02: Bedside Glucose (Misc Panel) 82L 04/20/21 05:04: Bedside Glucose (Misc Panel) 87 04/20/21 05:14: Neutrophils (%) (Auto) , Nucleated Red Blood Cells % (auto) 0.1H, Neutrophils 88H, Band Neutrophils 3, Lymphocytes (Manual) 6L, Monocytes (Manual) 1, Eosinophils (Manual) 1, Metamyelocytes 1H, Polychromasia 1+, Anisocytosis 1+, Schistocytes 1+, Ovalocytes 1+, Platelet Estimate MARKED DECREASE, Immature Platelet Fraction 7.5, Anion Gap 8, Glomerular Filtration Rate 33.5, Calcium Level 7.8L, Magnesium Level 2.2, Total Bilirubin 2.4H, Aspartate Amino Transf (AST/SGOT) 57H, Alanine Aminotransferase (ALT/SGPT) 41, Alkaline Phosphatase 78, Total Protein 6.0L, Albumin 2.0#L, Albumin/Globulin Ratio 0.5L CBC/BMP Laboratory Tests 04/20/21 05:14 FSBS Laboratory Tests Test 04/19/21 19:17 04/20/21 00:02 04/20/21 05:04 Range/Units Bedside Glucose (Misc Panel) 78 82 87 83-110 MG/DL Microbiology Microbiology 04/18/21 Blood Culture - Preliminary, Resulted 04/18/21 Blood Culture - Preliminary, Resulted 04/17/21 Blood Culture - Final, Complete Staphylococcus Lugdunensis 04/17/21 Blood Culture - Final, Complete Staphylococcus Lugdunensis 04/16/21 Blood Culture - Final, Complete Staphylococcus Lugdunensis 04/15/21 Urine Culture - Final, Complete Escherichia Coli 04/15/21 Blood Culture - Final, Complete Staphylococcus Lugdunensis 04/15/21 Blood Culture - Final, Complete Staphylococcus Lugdunensis Discharge Medications Scheduled Adalimumab (Humira Pen) 40 Mg/0.8 Ml [email or web address], 40 MG PO Q2WK, (Reported) Atenolol (Atenolol) 50 Mg Tablet, 25 MG PO DAILY, (Reported) Cholecalciferol (Vitamin D3) (Vitamin D3) 25 Mcg Capsule, 25 MCG PO DAILY, (Reported) Cyanocobalamin (Vitamin B-12) (Vitamin B-12) 500 Mcg Tablet, 500 MCG PO DAILY, (Reported) Duloxetine Hcl (Duloxetine HCl) 30 Mg Capsule.dr, 90 MG PO QHS, (Reported) Insulin Aspart (Novolog Flexpen) 100 Unit/1 Ml Insuln.pen, 12 UNITS SQ BID, (Reported) Insulin Degludec (Tresiba Flextouch U-200) 200 Unit/1 Ml Insuln.pen, 80 UNITS SQ DAILY, (Reported) Irbesartan (Irbesartan) 150 Mg Tablet, 150 MG PO DAILY, (Reported) Levothyroxine Sodium (Levoxyl) 125 Mcg Tablet, 125 MCG PO DAILY, (Reported) Rosuvastatin Calcium (Rosuvastatin Calcium) 20 Mg Tablet, 20 MG PO DAILY, (Reported) Sitagliptin (Januvia) 50 Mg Tablet, 50 MG PO DAILY, (Reported) Miscellaneous Medications [Patient Comment] , (Reported) UNABLE TO VERIFY MEDICATIONS WITH PATIENT, MED LIST OBTAINED FROM [facility] Allergies Coded Allergies: No Known Drug Allergies (Verified Allergy, Unknown, 12/18/20) CROW MAHONEY MD Apr 20, 2021 17:32
== END 2021-04-20 15:22 | disposition expired | DRG 871 ==
LOC: M ED 13:16 → M ED INP 20:23 → M ICU 20:56 → M MS5PR 04-20 14:45
PROVIDERS: ADMIT Family Medicine; ATTEND Family Medicine
PROC: 06HM33Z Insertion of Infusion Device into Right Femoral Vein, Percutaneous Approach (ICD-10-PCS; principal; 2021-04-16)
PROC: 5A1D90Z Performance of Urinary Filtration, Continuous, Greater than 18 hours Per Day (ICD-10-PCS; 2021-04-16)
PROC: 02HV33Z Insertion of Infusion Device into Superior Vena Cava, Percutaneous Approach (ICD-10-PCS; 2021-04-18)
DX: A41.1 Sepsis due to other specified staphylococcus (principal); I63.59 Cerebral infarction due to unspecified occlusion or stenosis of other cerebral artery; R65.21 Severe sepsis with septic shock; I33.0 Acute and subacute infective endocarditis; I21.A1 Myocardial infarction type 2; G93.41 Metabolic encephalopathy; E87.2 Acidosis; N39.0 Urinary tract infection, site not specified; N17.9 Acute kidney failure, unspecified; M62.82 Rhabdomyolysis; Z68.41 Body mass index [BMI] 40.0-44.9, adult; I76 Septic arterial embolism; Z51.5 Encounter for palliative care; Z66 Do not resuscitate; E11.649 Type 2 diabetes mellitus with hypoglycemia without coma; I46.9 Cardiac arrest, cause unspecified; E83.51 Hypocalcemia; B96.20 Unspecified Escherichia coli [E. coli] as the cause of diseases classified elsewhere; E66.9 Obesity, unspecified; R68.0 Hypothermia, not associated with low environmental temperature; E03.9 Hypothyroidism, unspecified; Z20.822 Contact with and (suspected) exposure to COVID-19; Z79.4 Long term (current) use of insulin; Z79.899 Other long term (current) drug therapy